=== PATIENT | male | born 1955 | race Caucasian/White ===

== ENCOUNTER 2020-08-23 10:36 | Outpatient (REF) | payer OTHER, SELFPAY ==
[2020-08-23 14:36] LABS: Prostate Specific Antigen 1.21 ng/mL (<0.05-4.0)
== END 2020-08-23 10:37 | disposition home or self-care (01) ==
LOC: HO.10HDL 10:36
PROVIDERS: Visit Provider Urology
DX: Z12.5 Encounter for screening for malignant neoplasm of prostate (principal); N40.1 Benign prostatic hyperplasia with lower urinary tract symptoms; N13.8 Other obstructive and reflux uropathy
CPT/HCPCS: 36415; 84153

== ENCOUNTER → 2020-09-02 09:33 | Outpatient (BNVA) | payer OTHER, SELFPAY | PROVIDERS: PCP Physician Assistant Medical; Visit Provider Urology | DX: N32.0 Bladder-neck obstruction (principal); Z80.42 Family history of malignant neoplasm of prostate | CPT/HCPCS: 99212 ==

== ENCOUNTER 2021-07-19 09:47 | Outpatient (REF) | payer OTHER, SELFPAY ==
[2021-07-19 11:15] LABS: Prostate Specific Antigen 1.19 ng/mL (<0.05-4.0)
== END 2021-07-19 09:48 | disposition home or self-care (01) ==
LOC: HO.10HDL 09:47
PROVIDERS: PCP Physician Assistant Medical; Visit Provider Urology
DX: Z12.5 Encounter for screening for malignant neoplasm of prostate (principal); N40.1 Benign prostatic hyperplasia with lower urinary tract symptoms; N32.0 Bladder-neck obstruction; N13.8 Other obstructive and reflux uropathy
CPT/HCPCS: 36415; 84153

== ENCOUNTER → 2021-08-24 09:53 | Outpatient (BNVA) | payer OTHER, SELFPAY | PROVIDERS: PCP Physician Assistant Medical; Visit Provider Urology | DX: Z13.89 Encounter for screening for other disorder (principal) | CPT/HCPCS: Q3014 ==

== ENCOUNTER 2022-08-13 10:53 | Outpatient (REF) | payer OTHER, SELFPAY ==
[2022-08-13 14:23] LABS: Prostate Specific Antigen 1.58 ng/mL (<0.05-4.0)
== END 2022-08-13 10:54 | disposition home or self-care (01) ==
LOC: HO.10HDL 10:53
PROVIDERS: Visit Provider Urology
DX: Z12.5 Encounter for screening for malignant neoplasm of prostate (principal); N13.8 Other obstructive and reflux uropathy; N32.0 Bladder-neck obstruction; N40.1 Benign prostatic hyperplasia with lower urinary tract symptoms
CPT/HCPCS: 36415; 84153

== ENCOUNTER → 2022-08-21 13:20 | Outpatient (BNVA) | payer OTHER, SELFPAY | PROVIDERS: PCP Physician Assistant Medical; Visit Provider Urology | DX: N32.0 Bladder-neck obstruction (principal); N40.1 Benign prostatic hyperplasia with lower urinary tract symptoms; N13.8 Other obstructive and reflux uropathy | CPT/HCPCS: 99212 ==

== ENCOUNTER 2023-08-01 10:12 | Outpatient (REF) | payer OTHER, SELFPAY ==
[2023-08-01 11:41] LABS: Prostate Specific Antigen 1.11 ng/mL (<0.05-4.0)
== END 2023-08-01 10:13 | disposition home or self-care (01) ==
LOC: HO.10HDL 10:12
PROVIDERS: Visit Provider Urology
DX: N32.0 Bladder-neck obstruction (principal); Z12.5 Encounter for screening for malignant neoplasm of prostate
CPT/HCPCS: 36415; 84153

== ENCOUNTER 2023-08-22 08:59 | Outpatient (AMB) | payer OTHER, SELFPAY ==
--- NOTE | 2023-08-22 09:04 | MHC.OFFVIS ---
Intake Intake Visit Reasons: 1Y PSA(set) Intake Note: Patient is Present for Follow Up Urology Medication: None Antibiotic Allergies:None Blood Thinners: None Allergies No Known Allergies Allergy (Verified 08/22/23 09:05) Medication List - Last Reconciled 08/22/23 by Danial Wiley MD albuterol sulfate 90 mcg/actuation 2 puffs inhalation Q4H PRN amlodipine 10 mg PO DAILY atorvastatin 40 mg PO BEDTIME cetirizine 10 mg PO BEDTIME diclofenac sodium 1% grams topical BID fluoxetine 20 mg PO DAILY fluticasone propion-salmeterol 500-50 mcg/dose 1 ea PO BID metformin 500 mg PO QAM montelukast 10 mg PO BEDTIME naproxen 500 mg PO BID tamsulosin 0.4 mg PO BEDTIME 30 days zolpidem 10 mg PO BEDTIME HPI HPI Comments History of Present Illness Details Nathaniel is a pleasant male. He is a patient of Dr Waggoner. He seen for the following urologic conditions - family history prostate cancer - lower urinary tract symptoms Slow age-related PSA climb States nocturia now 3-4 times per night and bothering him Discussed trial tamsulosin Prescription provided Two month follow-up tele Family history of prostate cancer Has been followed due to prostate cancer in his brother and father Also with some degree of bladder outlet obstruction in weak stream Background diabetes on single agent therapy PSA 08/23 0.83, 08/24 1.2, 07/25 1.2, 08/26 1.6, 07/27 1.1 Normal prostate Review in 12 months FORMERLY [facility], [facility]–1983 Medical History Asthma Hyperlipidemia HTN (hypertension) Family hx of prostate cancer Surgical History H/O umbilical hernia repair Family History Father Prostate cancer Mother Breast cancer Review of Systems Const Denies chills and Denies fever(s) Card Reports no additional complaints and Denies syncope Resp Denies cough GI Denies abdominal pain and Denies heartburn Reports as per HPI and Denies change in libido Neuro Denies syncope Psych Denies change in libido Endo Denies change in libido Physical Exam Const General: cooperative, healthy appearing, comfortable and no acute distress Orientation/consciousness: patient oriented x3 HEENT Face and sinus: Yes normal facial exam Mouth: moist mucous membranes Neck Neck: Yes normal visual inspection, Yes full ROM and Yes trachea midline Chest Chest palpation & inspection: normal inspection of the chest Resp Effort & Inspection: normal respiratory effort, able to speak in complete sentences and no respiratory distress GI Inspection: Yes normal to inspection Back/Spine/Pelvis Cervical Spine: normal cervical lordosis Thoracic/Lumbar Spine: thoracic and lumbar spine normal to inspection Skin General skin exam: no rashes or lesions noted Neuro General: patient oriented x3, gait normal, tone normal and moves all extremities Extrem General: Yes normal to inspection and Yes capillary refill normal Assessment & Plan Assessment & Plan (1) Family hx of prostate cancer: Code(s): Z80.42 - Family history of malignant neoplasm of prostate (2) Bladder outlet obstruction: Code(s): N32.0 - Bladder-neck obstruction Plan Trial tamsulosin Two month follow-up tele Medications: New tamsulosin 0.4 mg PO BEDTIME 30 days 30 caps 1RF N32.0 - Bladder-neck obstruction, N40.1 - Benign prostatic hyperplasia with lower urinary tract symptoms, R35.1 - Nocturia Patient Instructions: Imaging studies, laboratory and physical exam results were discussed and reviewed in detail. No major barriers to patient understanding were identified. An opportunity to ask questions regarding the treatment plan was provided. All questions were answered. The patient expressed understanding and agreement with the above treatment plan. The patient is aware they should contact our office by phone for worsening of their current condition or the appearance of new urologic symptoms. Compliance is encouraged with any medications and followup testing that is ordered. It is a privilege to participate in the urologic care of your patient. If you have any questions or concerns regarding treatment for the above conditions, or other urologic issues, please do not hesitate to contact me. The office telephone contact is [phone]. This note is constructed using voice recognition software. While every effort has been made to ensure accuracy air traffic control specialist center errors may have been included. Yours sincerely, Dr Danial Wiley MD, C[facility]ANDR[facility] - Urology Providers of Expert, Compassionate Care for the Genitourinary System Coding Level of Care Code Est Pt Level 4 (97508) Diagnoses Family hx of prostate cancer Z80.42 Bladder outlet obstruction N32.0
== END 2023-08-22 09:13 | disposition home or self-care (01) ==
PROVIDERS: PCP Physician Assistant Medical; Visit Provider Urology
DX: N32.0 Bladder-neck obstruction (principal); R35.1 Nocturia; Z80.42 Family history of malignant neoplasm of prostate
CPT/HCPCS: 99214

== ENCOUNTER → 2023-08-22 08:59 | Outpatient (BNVA) | payer OTHER, SELFPAY | PROVIDERS: Visit Provider Urology | DX: N40.1 Benign prostatic hyperplasia with lower urinary tract symptoms (principal); N13.8 Other obstructive and reflux uropathy; N32.0 Bladder-neck obstruction; R35.1 Nocturia; Z80.42 Family history of malignant neoplasm of prostate | CPT/HCPCS: 99212 ==

== ENCOUNTER 2023-10-22 09:13 | Outpatient (AMB) | payer OTHER, SELFPAY ==
--- NOTE | 2023-10-22 09:15 | A.OFFVIS_ITS ---
Intake Visit Reasons: 2M Med Review(Tamsulosin) Intake Note: Patient is Present for Telephone Follow Up For Med Review Urology Med: Tamsulosin Antibiotic Allergy:None Blood Thinner: None Infrastructure Software Engineer Required: Yes Infrastructure Software Engineer Language: Faroese Allergies No Known Allergies Allergy (Verified 10/22/23 09:15) Medication List - Last Reconciled 10/22/23 by Danial Wiley MD albuterol sulfate 90 mcg/actuation 2 puffs inhalation Q4H PRN amlodipine 10 mg PO DAILY atorvastatin 40 mg PO BEDTIME cetirizine 10 mg PO BEDTIME diclofenac sodium 1% grams topical BID fluoxetine 20 mg PO DAILY fluticasone propion-salmeterol 500-50 mcg/dose 1 ea PO BID metformin 500 mg PO QAM montelukast 10 mg PO BEDTIME tamsulosin 0.4 mg PO BEDTIME 90 days zolpidem 10 mg PO BEDTIME HPI Comments Details: Nathaniel is a pleasant male. He is a patient of Dr Waggoner. He seen for the following urologic conditions - family history prostate cancer - lower urinary tract symptoms Telemedicine Evaluation 15 min Consultation [place] Video attempted Faroese translation provided in office by qualified emergency medical service manager Follow-up for trial of tamsulosin Nocturia prior 3-4 times per night with bother Good response Would like to remain on medications Six-month follow-up with bladder ultrasound Family history of prostate cancer Has been followed due to prostate cancer in his brother and father Also with some degree of bladder outlet obstruction in weak stream Background diabetes on single agent therapy PSA 08/23 0.83, 08/24 1.2, 07/25 1.2, 08/26 1.6, 07/27 1.1 Normal prostate PFSH Medical History Asthma Hyperlipidemia HTN (hypertension) Family hx of prostate cancer Surgical History H/O umbilical hernia repair Family History Father Prostate cancer Mother Breast cancer Review of Systems Const All systems reviewed & are unremarkable except as noted in HPI and below Reports no additional complaints Resp Reports no additional complaints GI Reports no additional complaints Reports as per HPI Musc Reports no additional complaints Physical Exam Telemedicine evaluation Appropriate responses Regular breathing rate and rhythm HEENT Head: Yes normal to inspection Ears: hearing grossly normal bilaterally Eyes General: appearance normal, both eyes and all related structures Neck Neck: Yes normal visual inspection Chest Chest palpation & inspection: normal inspection of the chest Resp Effort & Inspection: normal respiratory effort and able to speak in complete sentences Telehealth Telehealth Telehealth Platform: Telephone Location of provider rendering services: practice address Location of patient: address on file Patient Identification confirmed using: Name, : Yes Telehealth method: voice only Patient verbally consented to treatment: Yes Patient verbally consented to billing insurance company: Yes Patient informed of any privacy concerns related to visit: Yes Minutes spent on Phone/Video with Pt.: 15 Assessment & Plan Assessment & Plan (1) Bladder outlet obstruction: Code(s): N32.0 - Bladder-neck obstruction Category: Medical Plan Six-month follow-up bladder ultrasound Continue tamsulosin Orders: Orders US bladder 6 Months N32.0 - Bladder-neck obstruction, R39.12 - Poor urinary stream Medications: Changed From tamsulosin 0.4 mg PO BEDTIME 30 days 30 caps 1RF N32.0 - Bladder-neck obstruction, N40.1 - Benign prostatic hyperplasia with lower urinary tract symptoms, R35.1 - Nocturia To tamsulosin 0.4 mg PO BEDTIME 90 days 90 caps 1RF N32.0 - Bladder-neck obstruction, N40.1 - Benign prostatic hyperplasia with lower urinary tract symptoms, R35.1 - Nocturia Patient Instructions: Imaging studies, laboratory and physical exam results were discussed and reviewed in detail. No major barriers to patient understanding were identified. An opportunity to ask questions regarding the treatment plan was provided. All questions were answered. The patient expressed understanding and agreement with the above treatment plan. The patient is aware they should contact our office by phone for worsening of their current condition or the appearance of new urologic symptoms. Compliance is encouraged with any medications and followup testing that is ordered. It is a privilege to participate in the urologic care of your patient. If you have any questions or concerns regarding treatment for the above conditions, or other urologic issues, please do not hesitate to contact me. The office telephone contact is [phone]. This note is constructed using voice recognition software. While every effort has been made to ensure accuracy batter mixer errors may have been included. Yours sincerely, Dr Danial Wiley MD, [facility] - Urology Providers of Expert, Compassionate Care for the Genitourinary System Coding Level of Care Code Tele Est Pt Level 3 (21432) Diagnoses Bladder outlet obstruction N32.0
== END 2023-10-22 09:50 | disposition home or self-care (01) ==
LOC: HO.HUSH 09:13
PROVIDERS: PCP Physician Assistant Medical; Visit Provider Urology
DX: N32.0 Bladder-neck obstruction (principal)
CPT/HCPCS: 99442

== ENCOUNTER → 2023-10-22 09:13 | Outpatient (BNVA) | payer OTHER, SELFPAY | PROVIDERS: PCP Physician Assistant Medical; Visit Provider Urology ==

== ENCOUNTER 2024-04-08 10:29 | Outpatient (REF) | payer OTHER, SELFPAY | END 2024-04-08 10:30 | disposition home or self-care (01) | LOC: HO.US 10:29 | PROVIDERS: PCP Physician Assistant Medical; Visit Provider Urology | DX: Z13.89 Encounter for screening for other disorder (principal) ==

== ENCOUNTER 2024-04-20 08:48 | Outpatient (REF) | payer OTHER, SELFPAY | END 2024-04-20 08:49 | disposition home or self-care (01) | LOC: HO.US 08:48 | PROVIDERS: PCP Physician Assistant Medical; Visit Provider Urology | DX: R39.12 Poor urinary stream (principal); N32.0 Bladder-neck obstruction | CPT/HCPCS: 76857 ==

== ENCOUNTER 2024-06-05 10:21 | Outpatient (AMB) | payer OTHER, SELFPAY ==
--- NOTE | 2024-06-05 10:28 | A.OFFVIS_ITS ---
Intake Visit Reasons: 6m/US(set) Intake Note: Patient is present for 6M /US Urology Medication:TAMSULOSIN Antibiotic Allergy:NONE Blood Thinner:NONE Vp Emerging Media Required: No Allergies No Known Allergies Allergy (Verified 06/05/24 10:29) HPI Comments Details: Nathaniel is a pleasant male. He is a patient of Dr Waggoner. He seen for the following urologic conditions - family history prostate cancer - lower urinary tract symptoms Vietnamese translation provided in office by qualified lead medical technologist Follow-up for trial of tamsulosin Nocturia prior 3-4 times per night with bother Bladder ultrasound Large prostate 100 cc Mild diffuse irregularity and trabeculation of the bladder wall. Incomplete bladder emptying Start finasteride Plan follow-up prostate procedure Family history of prostate cancer Has been followed due to prostate cancer in his brother and father Also with some degree of bladder outlet obstruction in weak stream Background diabetes on single agent therapy PSA 08/23 0.83, 08/24 1.2, 07/25 1.2, 08/26 1.6, 07/27 1.1 Normal prostate PFSH Medical History Asthma Hyperlipidemia HTN (hypertension) Family hx of prostate cancer Surgical History H/O umbilical hernia repair Family History Father Prostate cancer Mother Breast cancer Review of Systems Const Denies chills and Denies fever(s) Card Reports no additional complaints and Denies syncope Resp Denies cough GI Denies abdominal pain and Denies heartburn Reports as per HPI and Denies change in libido Neuro Denies syncope Psych Denies change in libido Endo Denies change in libido Physical Exam Const General: cooperative, healthy appearing, comfortable and no acute distress Orientation/consciousness: patient oriented x3 HEENT Face and sinus: Yes normal facial exam Mouth: moist mucous membranes Neck Neck: Yes normal visual inspection, Yes full ROM and Yes trachea midline Chest Chest palpation & inspection: normal inspection of the chest Resp Effort & Inspection: normal respiratory effort, able to speak in complete sentences and no respiratory distress GI Inspection: Yes normal to inspection Back/Spine/Pelvis Cervical Spine: normal cervical lordosis Thoracic/Lumbar Spine: thoracic and lumbar spine normal to inspection Skin General skin exam: no rashes or lesions noted Neuro General: patient oriented x3, gait normal, tone normal and moves all extremities Extrem General: Yes normal to inspection and Yes capillary refill normal Results AMB Urinalysis, Automated UA Leukoctes 0 Kathy/uL Last Edit by TAMIA Arias on 06/05/24 10:38 UA Nitrite Negative Last Edit by Donovan May [facility] on 06/05/24 10:38 UA Urobilinogen 0.2 mg/dL Last Edit by Donovan May [facility] on 06/05/24 10:3 8 UA Protein 15 mg/dL Last Edit by Donovan May [facility] on 06/05/24 10:38 UA pH 6.0 Last Edit by Donovan May [facility] on 06/05/24 10:38 UA Blood 10 Silvio/uL Last Edit by Donovan May [facility] on 06/05/24 10:38 UA Specific [place] 1.025 Last Edit by Donovan May [facility] on 06/05/24 10: 38 UA Ketone Negative Last Edit by Donovan May [facility] on 06/05/24 10:38 UA Bilirubin 0 mg/dL Last Edit by Donovan May [facility] on 06/05/24 10:38 UA Glucose 0 mg/dL Last Edit by Donovan May [facility] on 06/05/24 10:38 Results Reviewed Results Reviewed: Laboratory Last Values Urine pH (Auto) 6.0 06/05/24 10:37 Specific [place] (Auto) 1.025 06/05/24 10:37 Urine Protein (Auto) 15 mg/dL 06/05/24 10:37 Glucose (UA)(Auto) 0 mg/dL 06/05/24 10:37 Urine Ketones (Auto) Negative 06/05/24 10:37 Urine Blood (Auto) 10 Silvio/uL 06/05/24 10:37 Urine Nitrite (Auto) Negative 06/05/24 10:37 Urine Bilirubin (Auto) 0 mg/dL 06/05/24 10:37 Urine Urobilinogen (Auto) 0.2 mg/dL 06/05/24 10:37 Leukocyte Esterase (Auto) 0 Kathy/uL 06/05/24 10:37 Assessment & Plan Assessment & Plan (1) Bladder outlet obstruction: Code(s): N32.0 - Bladder-neck obstruction Category: Medical Plan Plan office cystoscopy Stop finasteride Orders: Orders AMB Urinalysis Automated Today Z13.9 - Encounter for screening, unspecified Medications: New finasteride 5 mg PO DAILY 90 tabs 1RF 90 days N13.8 - Other obstructive and reflux uropathy, N32.0 - Bladder-neck obstruction, N40.1 - Benign prostatic hyperplasia with lower urinary tract symptoms, R33.9 - Retention of urine, unspecified Patient Instructions: Imaging studies, laboratory and physical exam results were discussed and reviewed in detail. No major barriers to patient understanding were identified. An opportunity to ask questions regarding the treatment plan was provided. All questions were answered. The patient expressed understanding and agreement with the above treatment plan. The patient is aware they should contact our office by phone for worsening of their current condition or the appearance of new urologic symptoms. Compliance is encouraged with any medications and followup testing that is ordered. It is a privilege to participate in the urologic care of your patient. If you have any questions or concerns regarding treatment for the above conditions, or other urologic issues, please do not hesitate to contact me. The office telephone contact is [phone]. This note is constructed using voice recognition software. While every effort has been made to ensure accuracy cyber security instructor errors may have been included. Yours sincerely, Dr Danial Wiley MD, C[facility] - Urology Providers of Expert, Compassionate Care for the Genitourinary System Coding Level of Care Code Est Pt Level 4 (31243) Complex EM visit Add On G2211 Diagnoses Bladder outlet obstruction N32.0
--- OUTSIDE RECORDS SUMMARY | 2024-06-05 11:01 | XMS_ITS | Encounter Summary ---
Author Organization [facility] Address [address] [place] [address] Care Team Providers Care Servomechanism Assembler Name Role Phone Leonel Waggoner PA-C Primary Care Provider Encounter Details Date Type Department Care Team ([facility] st Contact Info) Description 05/29/2023 Interim Notes [facility]ly [facility], [facility] [place] [address] Meagan Woodard DC [address] [place] [address] Social History Tobacco Use Types Packs/Day Years Used Date Smoking Tobacco: Former Cigarettes 1 40 0 12/19/1971 - 12/19/2011 Smokeless Tobacco: Former Alcohol Use Standard Drinks/Week Comments Not Currently 1 (1 standard drink = 0.6 oz pur e alcohol) Social Connections Answer Date Recorded Social Connections and Isolation 1 04/11/2022 Financial Resource Strain Answer Date R ecorded Financial Resource Strain 1 2021 Stress Answer Date Recorded Stress 1 04/11/2022 Physical Activity Answer Date Recorded Physical Activity 0 09/01/2020 Food Insecurity Answer Date Recorded Food 1 04/11/2022 Transportation Needs Answer Date Record ed Transportation 1 04/11/2022 Housing Stability Answer Date Recorded Housing 1 04/11/2022 Safety and Environment Answer Date Anjum rded Safety 1 04/11/2022 Utilities Answer Date Recorded Utilities 1 04/11/2022 Employment Answer Date Recorded Stress 0 09/01/2020 Sex and Gender Information Value Date Recorded Sex Assigned at Male 02/14/2017 6:15 AM PDT Legal Sex Male 6:03 AM PDT Gender Identity Male 02/14/2017 6:15 AM PDT Sexual Orientation Straight 02/14/2017 6: 15 AM PDT COVID-19 Exposure Response Date Recorded In the last 10 days, have zain u been in contact with someone who was confirmed or suspected to have Coronavirus/COVID-19? No / Unsure 05/28/2023 3:23 PM EST documented as of this encounter Plan of Treatment Upcoming Encounters Date Type Department Care Team (Late st Contact Info) Description 07/01/2024 9:20 AM EST Office Visit [facility] [address] [place] [address] Leonel Waggoner PA-C [address] [place] [address] documented as of this encounter Goals Goal Patient Goal Type Associated Problems Recent Progress Patient-Stated? Author Blood Pressure < 130/80 Blood Pressure Essential hypertension 122/72(2023 8:41 AM EDT) No Stephanie Haddad, PharmD documented as of this encounter Visit Diagnoses Not on filedocumented in this encounter Additional Health Concerns Assessment Noted Time PHQ-9 Depression Total Score: 0 05/28/19 24 3:39 PM PST documented as of this encounter Care Teams Servomechanism Assembler Relationship Specialty Start Date End Date Leonel Waggoner PA-C [address] [place] [address] PCP - General [facility]INE[facility] 12/07/19 documented as of this encounter
--- OUTSIDE RECORDS SUMMARY | 2024-06-05 11:01 | XMS_ITS | Clinical Summary ---
Author Organization [facility] it Address [address] [place] [address] Care Team Providers Care Vp Analysis Name Role Phone Ana Kennedy NP Primary Care Provider [phone] Social History Tobacco Use Types Packs/Day Years Used Date Smoking Tobacco: Never Assessed Sex and Gender Information Value Date Recorded Sex Assigned at Not on file Gender Identity Not on file Sexual Orientation Not on file Plan of Treatment Health Maintenance Due Date Last Done Comments Pneumococcal Vaccine: 65+ Ye ars (1 of 2 - PCV) 1962 DTaP,Tdap,and Td Vaccines (1 - Tdap) 10/03/1975 Zoster Vaccines (1 of 2) 2006 RSV Immunization Patients 60 + Years Old (1 - Risk 60-74 years 1-dose series) 2016 Cholesterol Screening (Lipid Panel) 04/04/2022 Colorectal Cancer Screening: Colonoscopy 04/04/2022 Falls Risk Assessment 04/04/2022 Hepatitis C Screening 04/04/2022 Lung Cancer Screening (Low D ose CT) 04/04/2022 Social Influencers of Health Screening 04/04/2022 Hypertension/CHF/CAD Annual BMP Blood Test 05/28/2023 COVID-19 Vaccine ( - 2023-2 5 season) 2024 Influenza Vaccine (#1) 2024 Depression Screening 02/10/2025 02/11/2024 Abdominal Aortic Aneurysm (A AA) Screen Completed 04/11/2023 HIB Vaccines Aged Out No longer eligi ble based on patient's age to complete this topic HPV Vaccines Aged Out No longer eligi ble based on patient's age to complete this topic Hepatitis A Vaccines Aged Out No long er eligible based on patient's age to complete this topic Hepatitis B Vaccines Aged Out No long er eligible based on patient's age to complete this topic IPV Vaccines Aged Out No longer eligi ble based on patient's age to complete this topic MMR Vaccines Aged Out No longer eligi ble based on patient's age to complete this topic Meningococcal ACWY Vaccine Aged Out N o longer eligible based on patient's age to complete this topic RSV Immunization Patients Un dandre 20 months Aged Out No longer eligible b ased on patient's age to complete this topic Varicella Vaccines Aged Out No longer eligible based on patient's age to complete this topic Procedures Procedure Name Priority Date/Time Associated Diagnosis Comments US ABDOMEN AORTA SCR STUDY AAA Routine 04/11/2023 4:33 PM EST Encounter for screening for cardiovascular disorders from Last 3 Months or Most Recently Relevant to Health Maintenance Results * US ABDOMEN AORTA SCR STUDY AAA (04/11/2023 4:33 PM EST) Anatomical Region Laterality Modality Ultrasound 04/08/2023 8:50 AM EST Narrative 04/11/2023 4:33 PM EST [facility] Diagnostic Imaging Department [address] [place] [address] Patient: ??NATHANIEL DEE ?/Age/Sex: 1955 - 67 - M Unit#: ??[id number] ? Location/Status: ??SPDIUS/REG CLI ? Mnemonic/Ordering Site: ??AAASCRSTUD/SPUS Ordering Physician: ??YOLANDA BOUCHER MD US Abdomen Aorta Scr Study AAA - 04/08/23920 Report Status:Signed INDICATION: Screening for abdominal aortic aneurysm FINDINGS: Screening study ultrasound of the aorta performed. Aortic measurements: Proximal: 3.4 cm Mid: 3.0 cm Distal: 2.4 cm Patent iliac vessels. IMPRESSION: No abdominal aortic aneurysm. Dictating Physician: ??FRANDY CARROLL MD Electronically Signed by: ??FRANDY CARROLL MD Dic Date/Time: ??04/11/23 162 Sign date/Time: ??04/11/23 1633 Procedure Note Frandy Carroll MD - 06/11/2023 [facility] Diagnostic Imaging Department [address] [place], [place] [id number] Patient: NATHANIEL DEE./Age/Sex: 1955 - 67 - M Unit#: [id number] Location/Status: [facility] Mnemonic/Ordering Site: AAASCRST/US Ordering Physician: YOLANDA BOUCHER MD US Abdomen Aorta Scr Study AAA - 04/08/23 - 0921 Report Status:Signed INDICATION: Screening for abdominal aortic aneurysm FINDINGS: Screening study ultrasound of the aorta performed. Aortic measurements: Proximal: 3.4 cm Mid: 3.0 cm Distal: 2.4 cm Patent iliac vessels. IMPRESSION: No abdominal aortic aneurysm. Dictating Physician: FRANDY CARROLL MD Electronically Signed by: FRANDY CARROLL MD Dic Date/Time: 04/11/231624 Sign date/Time: 04/11/23 1633 Yolanda Boucher MD IMG US PROCEDURES from Last 3 Months or Most Recently Relevant to Health Maintenance Care Teams Vp Analysis Relationship Specialty Start Date End Date Ana Kennedy NP PCP - General Family Medicine 07/15/17
--- OUTSIDE RECORDS SUMMARY | 2024-06-05 11:02 | XMS_ITS | Clinical Summary ---
Author Organization [facility] Address [address] [place] [address] Care Team Providers Care Bunker Worker Name Role Phone Ana Kennedy Primary Care Provider [phone] Allergies Active Allergy Reactions Criticality Noted Date Comments Lisinopril 07/26/2017 Medications Medication Sig Dispensed Refills Start Date End Date Status fluticasone-salmeter ol (ADVAIR DISKUS) 500-50 MCG/DOSE DISKUS Per Pulmo. 0 05/24/2016 Active albuterol (PROVENTIL HFA;VENTOLIN HFA) 108 (90 Base) MCG/ACT inhaler Inhale 2 puffs into the lungs. 0 05/14/2017 Active amLODIPine (NORVASC) tablet 10 mg Take 10 mg by mouth. 0 05/14/2017 Ac tive aspirin EC 81 MG tablet Take 81 mg by mouth. 0 05/14/2017 Acti ve atorvastatin (LIPITOR) tablet 40 mg Take 40 mg by mouth. 0 05/14/2017 Acti ve lidocaine (XYLOCAINE) 5 % ointment Apply 1 applicator topically. 0 05/14/2017 Active mirtazapine (REMERON) 15 MG tablet Per Psych- Rodrigo 0 06/08/2015 Active montelukast (SINGULAIR) 10 MG tablet Per Pulmo 0 01/02/2016 Active naproxen (NAPROSYN) 500 MG tablet Take 500 mg by mouth. 0 05/14/2017 Active budesonide (PULMICORT FLEXHALER) 90 MCG/ACT inhaler Per Pulmo 0 03/12/2016 Active tiotropium (SPIRIVA) [address] 18 mcg into inhaler and inhale. 0 05/14/2017 Active Family History Medical History Relation Name Comments Cancer Brother Cancer Father Cancer Sister Relation Name Status Comments Brother Father Sister Social History Tobacco Use Types Packs/Day Years Used Date Smoking Tobacco: Never Assessed Sex and Gender Information Value Date Recorded Sex Assigned at Not on file Gender Identity Not on file Sexual Orientation Not on file Last Filed Vital Signs Vital Sign Reading Time Taken Comments Blood Pressure - - Pulse - - Temperature - - Respiratory Rate - - Oxygen Saturation - - Inhaled Oxygen Concentration - - Weight 104.3 kg (230 lb) 07/26/2017 11:06 AM EDT Height 188 cm (6' 2 ) 07/26/2017 11:06 AM EDT Body Mass Index 29.53 07/26/2017 11:06 AM EDT Plan of Treatment Health Maintenance Due Date Last Done Comments Hepatitis C Screening 1955 COVID-19 Vaccine (#1) 04[birth year]04/1957 Depression Screening 1968 Preventative Health Evaluation 1974 Shingrix-Zoster Vaccine (1 of 2) 2006 Fall Risk Assessment 2021 Pneumococcal Vaccine (2 of 2 - PCV) 2021 05/05/2015 Colon Cancer Screening (Colonoscopy) 11/14/2022 11/14/2012 Influenza Vaccine (#1) 2024 12/19/2016 DTap / Tdap / Td (2 - Td or Tdap) 11/15/2026 017 RSV Adult > 60+ Yrs or Pregn ant (1 - 1-dose 75+ series) 10/03/2031 Hepatitis B Vaccines Aged Out No long er eligible based on patient's age to complete this topic RSV Ped < 20 months Aged Out No longe r eligible based on patient's age to complete this topic Care Teams Bunker Worker Relationship Specialty Start Date End Date Ana Kennedy [address] [place] [id number] PCP - General Family Medicine 07/15/17
--- OUTSIDE RECORDS SUMMARY | 2024-06-05 11:02 | XMS_ITS | Clinical Summary ---
Author Organization [facility] Address [address] [place] [address] Care Team Providers Care Duplicating Machine Servicer Name Role Phone Leonel Waggoner PA-C Primary Care Provider [phone] Source Comments PLEASE NOTE, if this patient is a minor, it may be UNLAWFUL to discuss sensitive information that is contained in these records (such as FAMILY PLANNING, MENTAL HEALTH or SUBSTANCE ABUSE) with the minor patient's parent or other person without the patient's specific authorization.[facility] Allergies Active Allergy Reactions Criticality Noted Date Comments Lisinopril 12/23/2014 Dry cough Pollen 11/30/2020 Other Reaction(s): Unknown Pollen Extracts High 12/01/2020 Medications compr.madi beauchamp,earlene,hildaIndica tions:Bilateral lower extremity edema 3 PAIRS COMPRESSION STOCKINGS. Dx: R60.0. 20-30 mmHg. 3 Each 08/23/19 19 Active zolpidem (AMBIEN) 10 mg tabletIndications: Anxiety and depression Take 1 Tab by mouth nightly at bedtime 30 Tab 03/02/20 19 Active FLUoxetine (PROZAC) 20 mg capsuleIndications :Anxiety and depression Take 1 Cap by mouth once daily 30 Cap 09/01/19 20 Active albuterol sulfate (PROVENTIL) 2.5 mg /3 mL (0.083 %) nebulizer solutionIndication s:Pulmonary emphysema, unspecified emphysema type (HCC-CMS) Take 3 mL by nebulization every 6 (six) hours as needed for wheezing 120 Vial 2 05/20/19 21 Active miscellaneous medical supply miscIndications:Es sential hypertension by miscellaneous route 2 (two) times daily Dx: HTN. Portable digital blood pressure machine, disp#1, no refill. 1 Each 03/28/20 21 Active NUCALA 100 mg/mL atIn 01/02/20 22 Active marianela.stocking,t high,reg,med See Instructions, # 2 each, Refills 2, Tot. Refills 2, Maintenance, surgical, knee length 20-30 mm Hg Dx: Juli Insuff. bilateral legs, 07/07/21 8:20:00 EST, Supply 03/01/20 21 Active MISCELLANEOUS MEDICAL SUPPLY MISCIndications:Ch ronic right-sided thoracic back pain by miscellaneous route once daily Dx: chronic right sided thoracic pain ALIA: 99 Supply: Removable shower head with handle. 1 Each 06/25/19 24 Active MISCELLANEOUS MEDICAL SUPPLY MISCIndications:Ch ronic right-sided thoracic back pain by miscellaneous route once daily DX: chronic right sided thoracic pain ALIA: 99 Supply: leg pillow 1 Each 06/25/19 24 Active tamsulosin (FLOMAX) 0.4 mg 24 hr capsule Take 0.4 mg by mouth nightly at bedtime 09/18/19 24 Active hydrOXYzine HCL (ATARAX) 25 mg tablet 09/14/19 24 Active clobetasoL (TEMOVATE) 0.05 % ointment APPLY TO BACK, ARMS TWICE A DAY NEEDED FLARES, DECREASE USE SYMPTOMS IMPROVE 09/10/19 24 Active triamcinolone (KENALOG) 0.1 % ointment APPLY TO TRUNK, ARMS, LEGS 2 TIMES DAILY NEEDED FOR FLARES 08/19/19 24 Active tadalafiL (CIALIS) 10 mg tabletIndications: Other male erectile dysfunction Take 10 mg as a single dose =30 minutes prior to anticipated sexual activity; do not take more than once daily. Erectile function may be improved for up to 36 hours following a single dose. Adjust dose based on effectiveness and tolerability; may decrease to 5 mg 10 Tablet 2 10/10/19 24 Active albuterol HFA (VENTOLIN HFA) 90 mcg/actuation inhalerIndications :Pulmonary emphysema, unspecified emphysema type (HCC-CMS) Inhale 2 Puffs into the lungs every 4 (four) hours as needed for shortness of breath or wheezing 18 Each 2 10/10/19 24 Active atorvastatin (LIPITOR) 40 mg tabletIndications: Mixed hyperlipidemia TAKE 1 TABLET BY MOUTH EVERY DAY 90 Tablet 1 01/07/20 24 Active amLODIPine (NORVASC) 10 mg tabletIndications: Essential hypertension TAKE 1 TABLET BY MOUTH EVERY DAY 90 Tablet 1 02/02/20 24 Active fluticasone-umecli dinum-vilanterol (TRELEGY ELLIPTA) 100-62.5-25 mcg inhalerIndications :Pulmonary emphysema, unspecified emphysema type (HCC-CMS) Inhale 1 Puff into the lungs once daily 60 Each 5 02/11/20 24 Active naproxen (NAPROSYN) 500 mg tabletIndications: Arthritis,Pain in both feet Take 1 Tablet by mouth 2 (two) times daily with a meal 60 Tablet 5 02/11/20 24 Active metFORMIN (GLUCOPHAGE) 500 mg tabletIndications: Prediabetes Take 1 Tablet by mouth once daily with breakfast 90 Tablet 1 02/26/20 24 Active diclofenac sodium (VOLTAREN) 1 % gelIndications:Rig ht elbow pain APPLY TOPICALLY 2 (TWO) TIMES DAILY TO AFFECTED AREA 100 g 2 03/30/20 24 Active Active Problems Problem Noted Date Diagnosed Date Venous hypertension of lower extremity 4 Varicose veins of left lower extremity with pain 01/20/2024 Chronic right-sided thoracic back pain 3 Allergic rhinitis 01/30/2022 Colonic polyp 01/30/2022 Right Hand Pain Xray 06/16/2020 Overview (06/16/2020): Xray Of Right Hand FINDINGS: No fractures or bone lesions 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 Normal soft tissues Impression: No fractures or dislocation. Moderate persistent asthma 05/25/2018 Overview (01/04/2019): 04/14/18 - [facility] PULM F/U Dr. Horton: Had frequent asthma exacerbation in september 2017. 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 Was started on Omalizumab 375 mg Q2wks, now For almost 1 year, with good response. He should remain on Omalizumab. 10/13/18 - Pulm F/U. Pt with better controlled asthma. Plan: restart Salmeterol/fluticasone 50/500 1 inhalation BID. Not using Singulair, will consider restarting in future. F/U 6 mos. Rectal bleed 05/09/2018 Overview (05/09/2018): 05/07/18 - Seen at [facility] ED c/o low back pain x 2 weeks with BRBPR x [address] Abdomen/Pelvis: NO evidence of acute intra-abdominal process. NO specific explanation for clinical symptomatology. Colonic diveticulosis w/o CT signs of acute diverticulitis. F/U PCP Recurrent major depressive d isorder, in partial remission ([facility]) 01/28/2018 Prediabetes 01/28/2018 Overview (01/28/2018): Lab Results Component Value Date HGBA1C 5.7 01/28/2018 HGBA1C 5.5 12/23/2014 Epigastric mass 08/26/2016 Overview (08/26/2016): [facility] in 2016 negative Recurrent epigastric hernia 07/20/2016 MAO on CPAP 09/18/2015 Overview (09/18/2015): [facility] Hyperlipidemia 12/23/2014 Essential hypertension 12/23/2014 COPD (chronic obstructive pulmonary disease) ([facility]) 12/23/2014 Overview (03/27/2016): [facility] 2014: Pulmonary hyperinflation in keeping with COPD Arthritis 12/23/2014 Overview (12/23/2014): Lower back Resolved Problems Problem Noted Date Diagnosed Date Resolved Date Hx of colonoscopy with polypectomy 09/26/2015 05/09/2018 Overview (09/26/2015): [facility] 2015, tubular adenoma, follow up in one year due to poor prep Immunizations Name Administration Dates Next Due Flu, High Dose, 65y+, Fluzon e High Dose 01/30/2022 Flu, Preservative Free 12/19/2019,2018,12/29/2018,01/17,01/17/2018,12/19/2016,12/19/2016 ,01/18/2016,01/18/2016 INFLUENZA, SEASONAL, INJECTABLE 12/19/2016 Influenza (FLUZONE), high-do se, trivalent, PF 02/11/2024 MODERNA COVID-19 VACCINE BIV ALENT, BLUE CAP, 6M+ 01/30/2022 Moderna COVID-19 Vaccine, re d cap blue label, 12+ Primary Series 03/20/2021,07/30/2020,07/02/2020 PNEUMOCOCCAL CONJUGATE PCV 2 0 (Prevnar) 09/27/2022 PNEUMOCOCCAL POLYSACCHARIDE PPV23 10/26/2021, TDAP 06/21/2017,11/15/2016 ZOSTER VACCINE, RECOMBINANT (SHINGRIX) 0,06/02/2019 Family History Medical History Relation Name Comments Diabetes Brother 1 Diabetes Brother 2 Diabetes Brother 3 Cancer Father prostate cancer Cancer Sister breast cancer Relation Name Status Comments Brother 1 Brother 2 Brother 3 Father Mother Sister Alive Social History Tobacco Use Types Packs/Day Years Used Date Smoking Tobacco: Former Cigarettes 1 40 0 12/19/1971 - 12/19/2011 Passive Smoke Exposure: Never Smokeless Tobacco: Former Tobacco Cessation:Counseling Given: Yes Alcohol Use Standard Drinks/Week Comments Not Currently 1 (1 standard drink = 0.6 oz pur e alcohol) Social Connections Answer Date Recorded Connectedness 1 12/30/2023 Financial Resource Strain Answer Date R ecorded Financial Resource Strain 2 2023 Stress Answer Date Recorded Stress 1 12/30/2023 Physical Activity Answer Date Recorded Physical Activity 0 09/01/2020 Food Insecurity Answer Date Recorded Food 1 12/30/2023 Transportation Needs Answer Date Record ed Transportation 1 12/30/2023 Housing Stability Answer Date Recorded Housing 1 12/30/2023 Safety and Environment Answer Date Anjum rded Safety 1 10/10/2023 Utilities Answer Date Recorded Utilities 1 12/30/2023 Employment Answer Date Recorded Stress 0 09/01/2020 Sex and Gender Information Value Date Recorded Sex Assigned at Male 02/14/2017 6:15 AM PDT Legal Sex Male 6:03 AM PDT Gender Identity Male 02/14/2017 6:15 AM PDT Sexual Orientation Straight 02/14/2017 6: 15 AM PDT Last Filed Vital Signs Vital Sign Reading Time Taken Comments Blood Pressure 122/72 02/11/2024 8:41 AM EDT Pulse 72 02/11/2024 8:41 AM EDT Temperature 36.4 ??C (97.5 ??F) 02/11/2024 8:41 AM ED T Respiratory Rate 16 02/11/2024 8:41 AM EDT Oxygen Saturation 96% 02/11/2024 8:41 AM EDT Inhaled Oxygen Concentration - - Weight 103.9 kg (229 lb) 02/11/2024 8:41 AM EDT Height 180.3 cm (5' 11 ) 02/11/2024 8:41 AM EDT Body Mass Index 31.94 02/11/2024 8:41 AM EDT Plan of Treatment Upcoming Encounters Date Type Department Care Team (Late st Contact Info) Description 07/01/2024 9:20 AM EST Office Visit [facility] [address] [place] [address] Leonel Waggoner PA-C [address] [place] [address] Health Maintenance Due Date Last Done Comments CT Colonography 2001 Fecal DNA 2001 Flexible Sigmoidoscopy 2001 FIT/gFOBT 04/02/2018 04/02/2017, 09/04 (Managed by Outside Provider) Falls Prevention 02/22/2024 02/21/2023, , 09/01/2020 Alcohol and Drug Screen 05/06/2024 02/11/20 24, 10/10/2023, 05/28/2023, Additional history exists Depression Monitoring 05/13/2024 02/11/2024 , 10/10/2023, 05/28/2023, Additional history exists Mag-AAMCL-01 ( season) 2024 01/30/2022, 03/20/2021, 07/30/2020, Additional history exists Postponed from 01/05/2024 (Patient postponement) Medicare Annual Wellness Visit 10/09/2024 10/10/2023, 09/27/2022, 03/13/2021, Additional history exists Tobacco Screening 02/10/2025 02/11/2024 Diabetes Screening 02/11/2025 02/12/2024, 1 , 10/11/2023, Additional history exists Lipid Screening 02/11/2025 02/12/2024, 06/0 11/2023, 06/01/2023, Additional history exists Lung Cancer Screening 03/04/2025 03/04/2024 Colonoscopy 04/02/2027 04/02/2017 Colorectal Cancer Screening 04/02/2027 Imm-DTaP/Tdap/Td (3 - Td or Tdap) 06/21/2027 06/21/2017, 11/15/2016 Hepatitis C Screening Completed 11/15/2016 Imm-Zoster, Recombinant Completed 11/28/2019, 06/02 Imm-Pneumococcal 65+ Completed 09/27/2022, 10/26/2021, 05/05/2015 Abdominal Aortic Aneurysm Screening Completed 04/08/2023 Imm-Influenza Completed 02/11/2024, 01/05, 12/19/2019, Additional history exists Goals Goal Patient Goal Type Associated Problems Recent Progress Patient-Stated? Author Blood Pressure < 130/80 Blood Pressure Essential hypertension 122/72(2023 8:41 AM EDT) No Stephanie Haddad, PharmD Procedures Procedure Name Priority Date/Time Associated Diagnosis Comments IMAGING SCANNED DOCUMENT 04/20/2024 3:00 AM EST LOW DOSE CT LUNG SCREENING Routine 03/04/2024 3:00 AM EDT Former smoker COMPREHENSIVE METABOLIC PANEL Routine 02/12/2024 8:40 AM EDT Essential hypertension Mixed hyperlipidemia Prediabetes LIPID PANEL Routine 02/12/2024 8:40 AM EDT Essential hypertension Mixed hyperlipidemia Prediabetes US ABDOMINAL AORTA REAL TIME SCREEN STUDY AAA Routine 04/08/2023 3:00 AM EST Health care maintenance COLONOSCOPY Routine 04/02/2017 10:26 AM EST HEPATITIS A,B,C PANEL Routine 11/15/2016 9:35 AM EDT Routine general medical examination at a health care facility from Last 3 Months or Most Recently Relevant to Health Maintenance Results * IMAGING SCANNED DOCUMENT (04/20/2024 3:00 AM EST) 04/20/2024 3:00 AM EST us Rosimar Waggoner PA-C SCAN IMAGING Final Result * LOW DOSE CT LUNG SCREENING (03/04/2024 3:00 AM EDT) 03/04/2024 3:00 AM EDT us Rosimar Waggoner PA-C IMG CT Final Result * LIPID PANEL (02/12/2024 8:40 AM EDT) CHOLESTEROL, TOTAL 118 <200 mg/dL [facility] HDL CHOLESTEROL 43 > OR = 40 mg/dL [facility] TRIGLYCERIDES 70 <150 mg/dL [facility] LDL-CHOLESTEROL 60 99 mg/dL (calc) [facility] Comment: Reference range: <100 Desirable range <100 mg/dL for primary prevention; ?? <70 mg/dL for patients with CHD or diabetic patients with > or = 2 CHD risk factors. LDL-C is now calculated using the Alan-Robert calculation, which is a validated novel method providing better accuracy than the Friedewald equation in the estimation of LDL-C. Alan SS et al. JUNG. 2013;310(19): 6921-8681 (http://education.[employer]/faq/CHM792) CHOL/HDLC RATIO 2.7 <5.0 (calc) [facility] NON-HDL CHOLESTEROL 75 <130 mg/dL (calc) [facility] Comment: For patients with diabetes plus 1 major ASCVD risk factor, treating to a non-HDL-C goal of <100 mg/dL (LDL-C of <70 mg/dL) is considered a therapeutic option. Blood Blood / Unknown 02/12/2024 8 :40 AM EDT 02/12/2024 8:41 AM EDT Narrative [facility] - 02/13/2024 7:28 AM EDT FASTING:YES us Leonel Waggoner PA-C LAB - BLOOD DRAW Final Resul t [facility] [address] [address], [facility] [address] [place] [address] * (ABNORMAL) COMPREHENSIVE METABOLIC PANEL (02/12/2024 8:40 AM EDT) GLUCOSE 96 65 - 99 mg/dL [facility] Comment: ?Fasting reference interval UREA NITROGEN (BUN) 19 7 - 25 mg/dL [facility] CREATININE (blood) 0.99 0.70 - 1.35 mg/dL [facility] EGFR 83 > OR = 60 mL/min/1. 73m2 [facility] BUN/CREATININE RATIO SEE NOTE: [facility] Comment: ?? Not Reported: BUN and Creatinine are within ?? reference range. ? SODIUM 141 135 - 146 mmol/L [facility] POTASSIUM 4.0 3.5 - 5.3 mmol/L [facility] CHLORIDE 103 98 - 110 mmol/L [facility] CARBON DIOXIDE 28 20 - 32 mmol/L [facility] CALCIUM 9.6 8.6 - 10.3 mg/dL [facility] PROTEIN, TOTAL 7.3 6.1 - 8.1 g/dL [facility] ALBUMIN 4.6 3.6 - 5.1 g/dL [facility] GLOBULIN 2.7 1.9 - 3.7 g/dL (calc) [facility] ALBUMIN/GLOBULI N RATIO 1.7 1.0 - 2.5 (calc) [facility] BILIRUBIN, TOTAL 1.4(H) 0.2 - 1.2 mg/dL [facility] [employer] [facility] ALKALINE PHOSPHATASE 74 35 - 144 U/L [facility] [employer] [facility] AST 15 10 - 35 U/L [facility] ALT 17 9 - 46 U/L [facility] Blood Blood / Unknown 02/12/2024 8 :40 AM EDT 02/12/2024 8:41 AM EDT Narrative [facility] - 02/13/2024 7:28 AM EDT FASTING:YES Leonel Waggoner PA-C LAB - BLOOD DRAW Edited Resu lt - Final [facility] [address] [address], [place] [facility] [address] [place] [address] * US ABDOMINAL AORTA REAL TIME SCREEN STUDY AAA (04/08/2023 3:00 AM EST) 04/08/2023 3:00 AM EST Roshan Boucher MD IMG ULTRASOUND Edited Result - Final [facility] Corporate Office [address], [address] [place] [address], [place] [phone] * COLONOSCOPY (04/02/2017 10:26 AM EST) Impressions Marni Henning MA - 04/02/2017 10:26 AM EST Colonoscopy impression: Moderate diverticulosis of the whole colon and but most pronounced in the sigmoid External hemorrhoids Colon otherwise normal to terminal ileum Repeat 10 years Provider [facility] PROCEDURES Final Result * (ABNORMAL) HEPATITIS A,B,C PANEL (11/15/2016 9:35 AM EDT) HEPATITIS B SURFACE ANTIBODY NEGATIVE NEGATIVE [facility] HEPATITIS B SURFACE ANTIGEN NEGATIVE NEGATIVE [facility] Comment: Over the counter supplements containing high doses of biotin may interfere with this assay. ??If interference is suspected, patients shoud be retested after refraining from biotin supplements for 72 hours. HEPATITIS C VIRUS DIAGNOSTIC NEGATIVE NEGATIVE [facility] HEPATITIS A ANTIBODY TOTAL POSITIVE(A) NEGATIVE [facility] Comment: Over the counter supplements containing high doses of biotin may interfere with this assay. ??If interference is suspected, patients shoud be retested after refraining from biotin supplements for 72 hours. HEPATITIS B CORE ANTIBODY NEGATIVE NEGATIVE [facility] Blood specimen (specimen) Blood / Unknown 11/15/2016 9:35 AM EDT 11/15/2016 9:38 AM EDT Narrative [facility] - 11/15/2016 12:47 PM EDT [facility] [address] [place] [address] PT ID [id number] ORD# [id number] Ana Kennedy BED MACHINE OPERATOR LAB - BLOOD DRAW Edited Result - Final [facility] [address] [place] [address], from Last 3 Months or Most Recently Relevant to Health Maintenance Insurance [facility] Member Subscriber Plan / Payer (Ef fective 2017-Present) Name:Nathaniel Quinonez Relation to Subscriber:Self Name:Nathaniel Quinonez Payer ID:[id number] Group ID:Not on file Type:Indemnity Address: [address] [facility] [place] [address] Care Teams Duplicating Machine Servicer Relationship Specialty Start Date End Date Leonel Waggoner PA-C [facility] [place] [address] PCP - General FAMILY MEDICINEHENRIETTA 12/07/19
== END 2024-06-05 11:47 | disposition home or self-care (01) ==
PROVIDERS: PCP Physician Assistant Medical; Visit Provider Urology
DX: Z13.9 Encounter for screening, unspecified (principal); N32.0 Bladder-neck obstruction
CPT/HCPCS: 99214; G2211

== ENCOUNTER → 2024-06-05 10:21 | Outpatient (BNVA) | payer OTHER, SELFPAY | PROVIDERS: PCP Physician Assistant Medical; Visit Provider Urology | DX: N40.1 Benign prostatic hyperplasia with lower urinary tract symptoms (principal); N32.0 Bladder-neck obstruction; N13.8 Other obstructive and reflux uropathy; R33.8 Other retention of urine; Z80.42 Family history of malignant neoplasm of prostate | CPT/HCPCS: 81003; 99212 ==

== ENCOUNTER 2024-07-31 13:52 | Outpatient (AMB) | payer OTHER, SELFPAY ==
--- NOTE | 2024-07-31 14:04 | MHC.OFFVIS ---
Intake Visit Reasons: Cysto Intake Note: Pt presents to the office today for a cystoscopy procedure. Cystoscope Lot: [id number] Exp:09/11/26 Allergies No Known Allergies Allergy (Verified 07/31/24 14:04) HPI Comments Details: Nathaniel is a pleasant male. He is a patient of Dr Waggoner. He seen for the following urologic conditions - family history prostate cancer - lower urinary tract symptoms Egyptian translation provided in office by qualified medical dir Here for cystoscopy Trilobar hypertrophy Recommend GreenLight laser On tamsulosin with finasteride Nocturia prior 3-4 times per night with bother Bladder ultrasound Large prostate 100 cc Mild diffuse irregularity and trabeculation of the bladder wall. Incomplete bladder emptying Family history of prostate cancer Has been followed due to prostate cancer in his brother and father Also with some degree of bladder outlet obstruction in weak stream Background diabetes on single agent therapy PSA 08/23 0.83, 08/24 1.2, 07/25 1.2, 08/26 1.6, 07/27 1.1 Normal prostate PFSH Medical History Asthma Hyperlipidemia HTN (hypertension) Family hx of prostate cancer Surgical History H/O umbilical hernia repair Family History Father Prostate cancer Mother Breast cancer Review of Systems Const Denies chills and Denies fever(s) Card Reports no additional complaints and Denies syncope Resp Denies cough GI Denies abdominal pain and Denies heartburn Reports as per HPI and Denies change in libido Neuro Denies syncope Psych Denies change in libido Endo Denies change in libido Physical Exam Const General: cooperative, healthy appearing, comfortable and no acute distress Orientation/consciousness: patient oriented x3 HEENT Face and sinus: Yes normal facial exam Mouth: moist mucous membranes Neck Neck: Yes normal visual inspection, Yes full ROM and Yes trachea midline Chest Chest palpation & inspection: normal inspection of the chest Resp Effort & Inspection: normal respiratory effort, able to speak in complete sentences and no respiratory distress GI Inspection: Yes normal to inspection Back/Spine/Pelvis Cervical Spine: normal cervical lordosis Thoracic/Lumbar Spine: thoracic and lumbar spine normal to inspection Skin General skin exam: no rashes or lesions noted Neuro General: patient oriented x3, gait normal, tone normal and moves all extremities Extrem General: Yes normal to inspection and Yes capillary refill normal Office Procedures Cystoscopy Consent Discussed risk and benefit or proposed procedure with the patient. Information consent for procedure given to the patient. Discussed technical aspects, risks, benefits and alternatives in full. Addressed all of the patient's questions and concerns regarding the procedure. The patient demonstrated knowledge and understanding. They wish to proceed with this procedure. Preparation The patient was prepped in the usual manner. A account receivable associate was present and in the room. Genitalia was prepped with betadine solution in a sterile manner. Lidocaine Jelly 2% was placed into the urethra and 16Fr flexible Olympus cystoscope was inserted into the meatus after adequate lubrication. Procedure Cystoscopy performed- using a disposable Urovue digital 16 Moroccan cystoscope. Meatus uncircumcised Urethra anterior and posterior urethra normal Prostatic Urethra trilobar hyperplasia Bladder examination with retroflexion of cystoscope Bladder Orifices normal shape and position Bladder Capacity median Trabeculations grade 1/2 Cellule Formation yes Diverticulum Formation - Mucosal Erythema - Bladder Tumor - [id number] DISPOSABLE SCOPE URO-G FLEXIBLE SCOPE Procedure code (CPT) selection complete Office Meds lidocaine HCl 2 % mucosal jelly in applicator Performing Provider: Danial Wiley MD Performing Location: [facility] Administered by: Mirna Robison RN on 07/31/24 14:38 Dose Route Admin Location Dispensed Lot Number Expiration Date NDC Public Health Educator 10 mL intra-urethral 10 mL nitrofurantoin monohydrate/macrocrystals 100 mg capsule Performing Provider: Danial Wiley MD Performing Location: [facility] Administered by: Mirna Robison RN on 07/31/24 14:38 Dose Route Admin Location Dispensed Lot Number Expiration Date NDC Public Health Educator 100 mg PO 1 cap Results AMB Urinalysis, Automated UA Leukoctes 0 Kathy/uL Last Edit by Joann Tobias CMA on 07/31/24 14:16 UA Nitrite Negative Last Edit by Joann Tobias CMA on 07/31/24 14:16 UA Urobilinogen 0.2 mg/dL Last Edit by Joann Tobias CMA on 07/31/24 14:16 UA Protein 15 mg/dL Last Edit by Joann Tobias CMA on 07/31/24 14:16 UA pH 5.0 Last Edit by Joann Tobias CMA on 07/31/24 14:16 UA Blood 10 Silvio/uL Last Edit by Joann Tobias CMA on 07/31/24 14:16 UA Specific [place] 1.020 Last Edit by Joann Tobias CMA on 07/31/24 14:16 UA Ketone Negative Last Edit by Joann Tobias CMA on 07/31/24 14:16 UA Bilirubin 0 mg/dL Last Edit by Joann Tobias CMA on 07/31/24 14:16 UA Glucose 0 mg/dL Last Edit by Joann Tobias CMA on 07/31/24 14:16 Results Reviewed Results Reviewed: Laboratory Last Values Urine pH (Auto) 5.0 07/31/24 14:14 Specific [place] (Auto) 1.020 07/31/24 14:14 Urine Protein (Auto) 15 mg/dL 07/31/24 14:14 Glucose (UA)(Auto) 0 mg/dL 07/31/24 14:14 Urine Ketones (Auto) Negative 07/31/24 14:14 Urine Blood (Auto) 10 Silvio/uL 07/31/24 14:14 Urine Nitrite (Auto) Negative 07/31/24 14:14 Urine Bilirubin (Auto) 0 mg/dL 07/31/24 14:14 Urine Urobilinogen (Auto) 0.2 mg/dL 07/31/24 14:14 Leukocyte Esterase (Auto) 0 Kathy/uL 07/31/24 14:14 Assessment & Plan Assessment & Plan (1) Family hx of prostate cancer: Code(s): Z80.42 - Family history of malignant neoplasm of prostate Category: Medical (2) Bladder outlet obstruction: Code(s): N32.0 - Bladder-neck obstruction Category: Medical Plan We discussed the nature of the decision and reasonable options for performing a prostate intervention. Interventions include TURP, GreenLight laser enucleation of the prostate, GreenLight laser ablation of the prostate, transurethral incision of the prostate, and I-Tend prostate procedure. Options such as medical therapy were discussed. The relative uncertainties and benefits related to each alternate procedure were adequately discussed. General surgical risks including, but not limited to, pain, bleeding, infection, myocardial infarction, pulmonary embolus, deep vein thrombosis and cerebrovascular accident which may result in further hospitalization were discussed. Full disclosure of the procedure as well as all major risks, benefits and complications were discussed including but not limited to damage to the urethra or bladder neck, recurrent BPH, retrograde ejaculation, bladder infection, urge, de harry frequency, incomplete emptying, dysuria, remote chance of erectile dysfunction, epididymitis, and meatal stenosis. The success rate of the procedure was discussed. Success of the procedure in the short-term does not necessarily guarantee that long-term success will be maintained. Suitable follow up will need to be maintained. The patient showed understanding of discussion. An opportunity was provided for questions to be answered and wishes to proceed with the following procedure. - greenlight laser prostatectomy Orders: Orders AMB Urinalysis Automated Today N32.0 - Bladder-neck obstruction AMB Cystoscopy Today N32.0 - Bladder-neck obstruction, Z80.42 - Family history of malignant neoplasm of prostate Patient Instructions: This note is constructed using voice recognition software. While every effort has been made to ensure accuracy manager garden errors may have been included. Imaging studies, laboratory and physical exam results were discussed and reviewed in detail. No major barriers to patient understanding were identified. An opportunity to ask questions regarding the treatment plan was provided. All questions were answered. The patient expressed understanding and agreement with the above treatment plan. The patient is aware they should contact our office by phone for worsening of their current condition or the appearance of new urologic symptoms. Compliance is encouraged with any medications and followup testing that is ordered. It is a privilege to participate in the urologic care of your patient. If you have any questions or concerns regarding treatment for the above conditions, or other urologic issues, please do not hesitate to contact me. The office telephone contact is [phone]. Sincerely, Dr Danial Wiley MD, C[facility]AN[facility] - Urology Compassionate Specialist Care for the Genitourinary System Coding Level of Care Code Est Pt Level 4 (36029) Diagnoses Family hx of prostate cancer Z80.42 Bladder outlet obstruction N32.0 CPT Codes Cystoscopy - CPT: 43504-[id number] ([id number])
== END 2024-07-31 15:12 | disposition home or self-care (01) ==
LOC: HO.HUSH 13:53
PROVIDERS: PCP Physician Assistant Medical; Visit Provider Urology
DX: N40.1 Benign prostatic hyperplasia with lower urinary tract symptoms (principal); N32.0 Bladder-neck obstruction; Z80.42 Family history of malignant neoplasm of prostate
CPT/HCPCS: 52000; 99214

== ENCOUNTER → 2024-07-31 13:52 | Outpatient (BNVA) | payer OTHER, SELFPAY | PROVIDERS: PCP Physician Assistant Medical; Visit Provider Urology | DX: N32.0 Bladder-neck obstruction (principal); Z80.42 Family history of malignant neoplasm of prostate | CPT/HCPCS: 52000; 81003; 99212 ==

== ENCOUNTER → 2024-10-19 08:35 | Day surgery (SDC) | payer OTHER, SELFPAY ==
--- OUTSIDE RECORDS SUMMARY | 2024-09-21 11:39 | XMS_ITS | Clinical Summary ---
[facility] Address [address] [place] [address] Care Team Providers Care Duty Engineer Name Role Phone Ana Kennedy NP Primary Care Provider [phone] Social History Tobacco Use Types Packs/Day Years Used Date Smoking Tobacco: Never Assessed Sex and Gender Information Value Date Recorded Sex Assigned at Not on file Legal Sex Male 4:46 PM EST Gender Identity Not on file Sexual Orientation Not on file Plan of Treatment Health Maintenance Due Date Last Done Comments DTaP,Tdap,and Td Vaccines (1 - Tdap) 10/03/1975 Pneumococcal Vaccine: 50+ Ye ars (1 of 2 - PCV) 10/03/1975 Zoster Vaccines (1 of 2) 2006 RSV Immunization Adult Patie nts (1 - Risk 60-74 years 1-dose series) 2016 Colorectal Cancer Screening: Colonoscopy 04/04/2022 Falls Risk Assessment 04/04/2022 Hepatitis C Screening 04/04/2022 Lung Cancer Screening (Low D ose CT) 04/04/2022 Social Influencers of Health Screening 04/04/2022 COVID-19 Vaccine ( - 2023-2 5 season) 2024 Influenza Vaccine (Season Ended) 2025 Hypertension/CHF/CAD Annual BMP Blood Test 07/23/2025 07/23/2024 Depression Screening 09/09/2025 09/09/2024 Cholesterol Screening (Lipid Panel) 07/23/2029 07/23/2024 Abdominal Aortic Aneurysm (A AA) Screen Completed [...] patient's age to complete this topic Meningococcal B Vaccine Aged Out No l onger eligible based on patient's age to complete [...] AM EST Narrative 04/11/2023 4:33 PM EST [facility] Diagnostic Imaging Department [address] [place] [address] Patient: ??NATHANIEL DEE ?/Age/Sex: 1955 - 67 - M Unit#: ??[id number] ? Location/Status: ??[facility]/REG CLI ? Mnemonic/Ordering Site: [...] by: ??FRANDY CARROLL MD Dic Date/Time: ??04/11/23 1625 Sign date/Time: ??04/11/23 1633 Procedure Note Frandy Carroll MD - 06/11/2023 [facility] Diagnostic Imaging Department [address] [place], [place] [id number] Patient: NATHANIEL DEEO.B./Age/Sex: 1955 - 67 - M Unit#: [id number] Location/Status: [facility] CLI [facility] Ordering Physician: YOLANDA BOUCHER MD US Abdomen Aorta Scr Study AAA - 04/08/23920 Report Status:Signed INDICATION: Screening for abdominal aortic aneurysm FINDINGS: Screening study ultrasound of the aorta performed. Aortic measurements: Proximal: 3.4 cm Mid: 3.0 cm Distal: 2.4 cm Patent iliac vessels. IMPRESSION: No abdominal aortic aneurysm. Dictating Physician: FRANDY CARROLL MD Electronically Signed by: FRANDY CARROLL MD Dic Date/Time: 04/11/23 1625 Sign date/Time: 04/11/23 1633 us Yolanda Boucher MD [facility] US PROCEDURES Final Result from Last 3 Months or Most Recently Relevant to Health Maintenance Care Teams Duty Engineer Relationship Specialty Start Date End Date Ana Kennedy NP PCP - General Family Medicine 07/15/17
--- OUTSIDE RECORDS SUMMARY | 2024-09-21 11:39 | XMS_ITS | Encounter Summary ---
Author Organization [facility] Address [address] [place] [address] Care Team Providers Care Dental Instrument Maker Name Role Phone Leonel Waggoner PA-C Primary Care Provider Encounter Details Date Type Department Care Team (Late st Contact Info) Description 05/29/2023 Interim Notes [facility] [address] [phone] Meagan Woodard [place] [address] [place], [place] [phone] Social History Tobacco Use Types Packs/Day Years [...] as of this encounter Plan of Treatment Not on file documented as of this encounter Goals Goal Patient Goal Type Associated Problems Recent Progress Patient-Stated? Author Blood Pressure < 130/80 Blood Pressure Essential hypertension 122/82(2024 1:28 PM EDT) No Stephanie Haddad, PharmD documented as of this encounter Visit Diagnoses Not on filedocumented in this encounter Additional Health Concerns Assessment Noted Time PHQ-9 Depression Total Score: 0 05/28/19 24 3:39 PM PST documented as of this encounter Care Teams Dental Instrument Maker Relationship Specialty Start Date End Date Leonel Waggoner PA-C [address] [place] [address] PCP - General FAMILY MEDICINEHENRIETTA 12/07/19 documented as of this encounter
--- OUTSIDE RECORDS SUMMARY | 2024-09-21 11:40 | XMS_ITS | Clinical Summary ---
Author Organization [facility] Address [address] [place] [address] Care Team Providers Care Bass Viol Repairer Name Role Phone Ana Kennedy Primary Care Provider [phone] Allergies Active Allergy Reactions Criticality Noted Date [...] age to complete this topic Care Teams Bass Viol Repairer Relationship Specialty Start Date End Date Ana Kennedy [address] [place] [id number] PCP - General Family Medicine 07/15/17
--- OUTSIDE RECORDS SUMMARY | 2024-09-21 11:40 | XMS_ITS | Clinical Summary ---
Author Organization [facility] Address [address] [place] [address] Care Team Providers Care Kitchen Worker Name Role Phone Leonel Waggoner PA-C Primary Care Provider Source Comments PLEASE NOTE, if this patient [...] Reaction(s): Unknown Pollen Extracts High 12/01/2020 Medications compr.suzanneing,alessandra goyal,earlene,hildaIndi cations:Bilateral lower extremity edema 3 PAIRS COMPRESSION STOCKINGS. Dx: R60.0. 20-30 mmHg. 3 Each 019 Active zolpidem (AMBIEN) 10 mg tabletIndications :Anxiety and depression Take 1 Tab by mouth nightly at bedtime 30 Tab 019 Active FLUoxetine (PROZAC) 20 mg capsuleIndication s:Anxiety and depression Take 1 Cap by mouth once daily 30 Cap 020 Active albuterol sulfate (PROVENTIL) 2.5 mg /3 mL (0.083 %) nebulizer solutionIndicatio ns:Pulmonary emphysema, unspecified emphysema type (HCC-CMS) Take 3 mL by nebulization every 6 (six) hours as needed for wheezing 120 Vial 2 021 Active miscellaneous medical supply miscIndications:E ssential hypertension by miscellaneous route 2 (two) times daily Dx: HTN. Portable digital blood pressure machine, disp#1, no refill. 1 Each Active NUCALA 100 mg/mL atIn 022 Active marianela.stocking, thigh,reg,med See Instructions, # 2 each, Refills 2, Tot. Refills 2, Maintenance, surgical, knee length 20-30 mm Hg Dx: [facility] bilateral legs, 07/07/21 8:20:00 EST, Supply Active MISCELLANEOUS MEDICAL SUPPLY MISCIndications:C hronic right-sided thoracic back pain by miscellaneous route once daily Dx: chronic right sided thoracic pain ALIA: 99 Supply: Removable shower head with handle. 1 Each Active MISCELLANEOUS MEDICAL SUPPLY MISCIndications:C hronic right-sided thoracic back pain by miscellaneous route once daily DX: chronic right sided thoracic pain ALIA: 99 Supply: leg pillow 1 Each 024 Active tamsulosin (FLOMAX) 0.4 mg 24 hr capsule Take 0.4 mg by mouth nightly at bedtime Active hydrOXYzine HCL (ATARAX) 25 mg tablet Active clobetasoL (TEMOVATE) 0.05 % ointment APPLY TO BACK, ARMS TWICE A DAY NEEDED FLARES, DECREASE USE SYMPTOMS IMPROVE Active triamcinolone (KENALOG) 0.1 % ointment APPLY TO TRUNK, ARMS, LEGS 2 TIMES DAILY NEEDED FOR FLARES Active tadalafiL (CIALIS) 10 mg tabletIndications :Other male erectile dysfunction Take 10 mg as a single dose =30 minutes prior to anticipated sexual activity; do not take more than once daily. Erectile function may be improved for up to 36 hours following a single dose. Adjust dose based on effectiveness and tolerability; may decrease to 5 mg 10 Tablet 2 024 Active naproxen (NAPROSYN) 500 mg tabletIndications :Arthritis,Pain in both feet Take 1 Tablet by mouth 2 (two) times daily with a meal 60 Tablet 5 024 Active diclofenac sodium (VOLTAREN) 1 % gelIndications:Ri ght elbow pain APPLY TOPICALLY 2 (TWO) TIMES DAILY TO AFFECTED AREA 100 g 2 024 Active atorvastatin (LIPITOR) 40 mg tabletIndications :Mixed hyperlipidemia TAKE 1 TABLET BY MOUTH EVERY DAY 90 Tablet 1 025 Active amLODIPine (NORVASC) 10 mg tabletIndications :Essential hypertension TAKE 1 TABLET BY MOUTH EVERY DAY 90 Tablet 1 025 Active albuterol HFA 90 mcg/actuation inhalerIndication s:Pulmonary emphysema, unspecified emphysema type (HCC-CMS) INHALE 2 PUFFS INTO THE LUNGS EVERY 4 (FOUR) HOURS NEEDED FOR SHORTNESS OF BREATH OR WHEEZING 18 Each 2 025 Active metFORMIN (GLUCOPHAGE) 500 mg tabletIndications :Prediabetes Take 1 Tablet by mouth once daily with breakfast 90 Tablet 1 025 Active tirzepatide, weight loss, (ZEPBOUND) 5 mg/0.5 mL pnijIndications:E ssential hypertension,Mixe d hyperlipidemia,Pr ediabetes,BMI 32.0-32.9,adult Inject 5 mg into the skin once a week 2 mL 2 025 Active TRELEGY ELLIPTA 100-62.5-25 mcg inhalerIndication s:Pulmonary emphysema, unspecified emphysema type (HCC-CMS) INHALE 1 SOPLIDO POR VIA ORAL HACIA LOS PULMONES ANDIE VEZ AL MARTHA 60 Each 3 025 Active fluticasone-umecl idinum-vilanterol (TRELEGY ELLIPTA) 100-62.5-25 mcg inhalerIndication s:Pulmonary emphysema, unspecified emphysema type (HCC-CMS) Inhale 1 Puff into the lungs once daily 60 Each 5 024 2024 Discontinued tirzepatide, weight loss, (ZEPBOUND) 2.5 mg/0.5 mL pnijIndications:E ssential hypertension,Mixe d hyperlipidemia,Pr ediabetes,BMI 32.0-32.9,adult Inject 2.5 mg into the skin once a week 2 mL 025 2024 Discontinued(T herapy completed/Not needed) Active Problems Problem Noted Date Diagnosed Date [...] No fractures or dislocation. Moderate persistent asthma ([facility]) 05/25/2018 Overview (01/04/2019): 04/14/18 - [facility] PULM F/U Dr. Horton: Had frequent asthma [...] 05/09/2018 Overview (05/09/2018): 05/07/18 - Seen at [facility] ED c/o low back pain x 2 weeks with BRBPR x [address] Abdomen/Pelvis: NO evidence of acute intra-abdominal process. NO specific explanation for clinical symptomatology. Colonic diveticulosis w/o CT signs of acute diverticulitis. F/U PCP Recurrent major depressive d isorder, in partial remission ([facility] V24) 01/28/2018 Prediabetes 01/28/2018 Overview (01/28/2018): Lab Results Component Value Date HGBA1C 5.7 01/28/2018 HGBA1C 5.5 12/23/2014 Epigastric mass 08/26/2016 Overview (08/26/2016): [facility] in 2016 negative Recurrent epigastric hernia 07/20/2016 MAO on CPAP 09/18/2015 Overview (09/18/2015): [facility] Hyperlipidemia 12/23/2014 Essential hypertension 12/23/2014 COPD (chronic obstructive pulmonary disease) ( [facility]) 12/23/2014 Overview (03/27/2016): [facility] Simran 2014: Pulmonary hyperinflation in keeping with COPD Arthritis 12/23/2014 Overview (12/23/2014): Lower back Resolved Problems Problem Noted Date Diagnosed Date Resolved Date Hx of colonoscopy with polypectomy 09/26/2015 05/09/2018 Overview (09/26/2015): [facility] 2015, tubular adenoma, follow up in one year due to poor prep Encounters Date Type Department Care Team Description 09/09/2024 1:20 PM EDT Office Visit [address] [phone] Leonel Waggoner PA-C Essential hypertension (Primary Dx); Mixed hyperlipidemia; Prediabetes; BMI 32.0-32.9,adult 08/25/2024 Interim Notes [address] [phone] Veda Camargo MS 07/22/2024 10:20 AM EDT Office Visit [address] [address] Leonel Waggoner PA-C Essential hypertension (Primary Dx); Mixed hyperlipidemia; Prediabetes; Acute pain of left shoulder; BMI 32.0-32.9,adult from Last 3 Months Immunizations Immunization Administration Dates Next Due Flu, High Dose, 65y+, Fluzon e High Dose 01/30/2022 Flu, Preservative Free 12/19/2019,2018,12/29/2018,01/17,01/17/2018,12/19/2016,12/19/2016 ,01/18/2016,01/18/2016 INFLUENZA, SEASONAL, INJECTABLE 12/19/2016 Influenza (FLUZONE), high-do se, trivalent, PF 02/11/2024 MODERNA COVID-19 VACCINE BIV ALENT, BLUE CAP, 6M+ 01/30/2022 Moderna COVID-19 Vaccine, re d cap blue label, 12+ Primary Series 03/20/2021,07/30/2020,07/02/2020 PNEUMOCOCCAL CONJUGATE PCV 2 0 (Prevnar) 09/27/2022 PNEUMOCOCCAL POLYSACCHARIDE PPV23 (Pneumovax 23) 10/26/2021,05/05/2015 TDAP 06/21/2017,11/15/2016 ZOSTER VACCINE, RECOMBINANT (SHINGRIX) 0,06/02/2019 [...] Social Connections Answer Date Recorded Connectedness 1 09/09/2024 Financial Resource Strain Answer Date R ecorded Financial Resource Strain 1 2024 Stress Answer Date Recorded Stress 1 09/09/2024 Physical Activity Answer Date Recorded Physical Activity 0 09/01/2020 Food Insecurity Answer Date Recorded Food 1 09/09/2024 Transportation Needs Answer Date Record ed Transportation 1 09/09/2024 Housing Stability Answer Date Recorded Housing 1 09/09/2024 Safety and Environment Answer Date Anjum rded Safety 1 10/10/2023 Utilities Answer Date Recorded Utilities 1 09/09/2024 Employment Answer Date Recorded Stress 0 09/01/2020 Sex and Gender Information Value Date Recorded Sex Assigned at Male 02/14/2017 6:15 AM PDT Legal Sex Male 6:03 AM PDT Gender Identity Male 02/14/2017 6:15 AM PDT Sexual Orientation Straight 02/14/2017 6: 15 AM PDT Last Filed Vital Signs Vital Sign Reading Time Taken Comments Blood Pressure 122/82 09/09/2024 1:28 PM EDT Pulse 76 09/09/2024 1:28 PM EDT Temperature 36.7 ??C (98 ??F) 09/09/2024 1:28 PM EDT Respiratory Rate 16 09/09/2024 1:28 PM EDT Oxygen Saturation 96% 09/09/2024 1:28 PM EDT Inhaled Oxygen Concentration - - Weight 101.8 kg (224 lb 6.4 oz) 09/09/2024 1:28 PM EDT Height 180.3 cm (5' 11 ) 09/09/2024 1:28 PM EDT Body Mass Index 31.3 09/09/2024 1:28 PM EDT Plan of Treatment Health Maintenance Due Date Last Done Comments CT Colonography 2001 Fecal DNA 2001 Flexible Sigmoidoscopy 2001 FIT/gFOBT 04/02/2018 04/02/2017, 09/04 (Managed by Outside Provider) Medicare Annual Wellness Visit 10/09/2024 10/10/2023, 09/27/2022, 03/13/2021, Additional history exists Depression Monitoring 12/10/2024 09/09/2024 , 07/22/2024, 02/11/2024, Additional history exists [id number] ( season) 2024 01/30/2022, 03/20/2021, 07/30/2020, Additional history exists Postponed from 01/05/2024 (Patient postponement) Lung Cancer Screening 03/04/2025 03/04/2024 Falls Prevention 07/22/2025 07/22/2024, , 01/30/2022, Additional history exists Tobacco Screening 07/22/2025 07/22/2024 Diabetes Screening 07/23/2025 07/23/2024, 0 07/23/2024, 02/12/2024, Additional history exists Lipid Screening 07/23/2025 07/23/2024, 10/01/2024, 10/11/2023, Additional history exists Colonoscopy 04/02/2027 04/02/2017 Colorectal Cancer Screening 04/02/2027 Imm-DTaP/Tdap/Td (3 - Td or Tdap) 06/21/2027 06/21/2017, 11/15/2016 Hepatitis C Screening Completed 11/15/2016 Imm-Zoster, Recombinant Completed 11/28/2019, 06/02 Imm-Pneumococcal 65+ Completed 09/27/2022, 10/26/2021, 05/05/2015 Abdominal Aortic Aneurysm Screening Completed 04/08/2023 Imm-Influenza Completed 02/11/2024, 01/05, 01/30/2022, Additional history exists Alcohol and Drug Screen Completed 09/10/19, 07/22/2024, 02/11/2024, Additional history exists Goals Goal Patient Goal Type Associated Problems Recent Progress Patient-Stated? Author Blood Pressure < 130/80 Blood Pressure Essential hypertension 122/82(2024 1:28 PM EDT) No Stephanie Haddad, David Procedures Procedure Name Priority Date/Time Associated Diagnosis Comments REFERRAL SCANNED DOCUMENT 08/24/2024 3:00 AM EDT REFERRAL SCANNED DOCUMENT 07/31/2024 3:00 AM EDT HGBA1C W/MPG Routine 07/23/2024 8:37 AM EDT Prediabetes LIPID PANEL Routine 07/23/2024 8:37 AM EDT Essential hypertension Mixed hyperlipidemia Prediabetes COMPREHENSIVE METABOLIC PANEL Routine 07/23/2024 8:37 AM EDT Essential hypertension Mixed hyperlipidemia Prediabetes BLOOD COUNT COMPLETE AUTO&AUTO DIFRNTL WBC Routine 07/23/2024 8:37 AM EDT Essential hypertension Mixed hyperlipidemia Prediabetes LOW DOSE CT LUNG SCREENING Routine 03/04/2024 3:00 AM EDT Former smoker US ABDOMINAL AORTA REAL TIME SCREEN STUDY AAA Routine 04/08/2023 3:00 AM EST Health care maintenance COLONOSCOPY Routine 04/02/2017 10:26 AM EST HEPATITIS A,B,C PANEL Routine 11/15/2016 9:35 AM EDT Routine general medical examination at a health care facility from Last 3 Months or Most Recently Relevant to Health Maintenance Results * REFERRAL SCANNED DOCUMENT (08/24/2024 3:00 AM EDT) Only the most recent of2 resultswithin the time period is included. 08/24/2024 3:00 AM EDT [facility] Provider Default SCAN REFERRAL Final Resu lt * (ABNORMAL) HGBA1C W/MPG (07/23/2024 8:37 AM EDT) HEMOGLOBIN A1C 5.8(H) <5.7 % of total Hgb [facility] Comment: For someone without known diabetes, a hemoglobin A1c value between 5.7% and 6.4% is consistent with prediabetes and should be confirmed with a follow-up test. For someone with known diabetes, a value <7% indicates that their diabetes is well controlled. A1c targets should be individualized based on duration of diabetes, age, comorbid conditions, and other considerations. This assay result is consistent with an increased risk of diabetes. Currently, no consensus exists regarding use of hemoglobin A1c for diagnosis of diabetes for children. MEAN PLASMA GLUCOSE 129 mg/dL (calc) [facility] Blood Blood / Unknown 07/23/2024 8 :37 AM EDT 07/23/2024 8:37 AM EDT Narrative [employer] [facility] - 07/24/2024 8:25 AM EDT FASTING:YES Leonel Waggoner PA-C LAB - BLOOD DRAW Final Resul t [facility] [address] [place] [address], Level [address] [address] * BLOOD COUNT COMPLETE AUTO&AUTO DIFRNTL WBC (07/23/2024 8:37 AM EDT) WHITE BLOOD CELL COUNT 5.6 3.8 - 10.8 Thousand/ uL [facility] RED BLOOD CELL COUNT 4.78 4.20 - 5.80 Million/u L [facility] HEMOGLOBIN 14.6 13.2 - 17.1 g/dL [facility] HEMATOCRIT 44.7 38.5 - 50.0 % [facility] MCV 93.5 80.0 - 100.0 fL [facility] MCH 30.5 27.0 - 33.0 pg [facility] MCHC 32.7 32.0 - 36.0 g/dL [facility] Comment: For adults, a slight decrease in the calculated MCHC value (in the range of 30 to 32 g/dL) is most likely not clinically significant; however, it should be interpreted with caution in correlation with other red cell parameters and the patient's clinical condition. RDW 13.5 11.0 - 15.0 % [facility] PLATELET COUNT 242 140 - 400 Thousand/ uL [facility] MPV 10.7 7.5 - 12.5 fL [facility] ABSOLUTE NEUTROPHILS 2,363 1,500 - 7,800 cells/uL [facility] ABSOLUTE LYMPHOCYTES 2,671 850 - 3,900 cells/uL [facility] ABSOLUTE MONOCYTES 476 200 - 950 cells/uL [facility] ABSOLUTE EOSINOPHILS 62 15 - 500 cells/uL [facility] ABSOLUTE BASOPHILS 28 0 - 200 cells/uL [facility] NEUTROPHILS PCT 42.2 % QUES [employer] [facility] LYMPHOCYTES 47.7 % [employer] [facility] MONOCYTES 8.5 % Note DIAG [employer] [facility] EOSINOPHILS 1.1 % [employer] [facility] BASOPHILS 0.5 % [employer] [facility] Blood Blood / Unknown 07/23/2024 8 :37 AM EDT 07/23/2024 8:37 AM EDT Narrative [employer] [facility] - 07/24/2024 8:25 AM EDT FASTING:YES Leonel Waggoner PA-C LAB - BLOOD DRAW Edited Resu lt - Final [employer] [facility] [address] [address], Level [address] [address] * LIPID PANEL (07/23/2024 8:37 AM EDT) CHOLESTEROL, TOTAL 126 <200 mg/dL Level [facility] HDL CHOLESTEROL 43 > OR = 40 mg/dL [facility] TRIGLYCERIDES 75 <150 mg/dL [facility] LDL-CHOLESTEROL 67 99 mg/dL (calc) Level [facility] Comment: Reference range: <100 Desirable range <100 mg/dL for primary prevention; ?? <70 mg/dL for patients with CHD or diabetic patients with > or = 2 CHD risk factors. LDL-C is now calculated using the Karrie calculation, which is a validated novel method providing better accuracy than the Friedewald equation in the estimation of LDL-C. Alan ASENCIO et al. JUNG. 2013;310(19): 9863-7329 (http://education.Forgame/faq/GSO902) CHOL/HDLC RATIO 2.9 <5.0 (calc) [facility] NON-HDL CHOLESTEROL 83 <130 mg/dL (calc) [facility] Comment: For patients with diabetes plus 1 major ASCVD risk factor, treating to a non-HDL-C goal of <100 mg/dL (LDL-C of <70 mg/dL) is considered a therapeutic option. Blood Blood / Unknown 07/23/2024 8 :37 AM EDT 07/23/2024 8:37 AM EDT Narrative [facility] [facility] - 07/24/2024 8:25 AM EDT FASTING:YES Leonel Waggoner PA-C LAB - BLOOD DRAW Final Resul t [facility] [address] [place] [address], [facility] [address] [place] [phone] * COMPREHENSIVE METABOLIC PANEL (07/23/2024 8:37 AM EDT) [facility] GLUCOSE 93 65 - 99 mg/dL [facility] Comment: ?Fasting reference interval UREA NITROGEN (BUN) 20 7 - 25 mg/dL [facility] CREATININE (blood) 0.90 0.70 - 1.35 mg/dL [facility] EGFR 94 > OR = 60 mL/min/1. 73m2 [facility] BUN/CREATININE RATIO SEE NOTE: [facility] Comment: ?? Not Reported: BUN and Creatinine are within ?? reference range. ? SODIUM 142 135 - 146 mmol/L [facility] POTASSIUM 4.4 3.5 - 5.3 mmol/L [facility] CHLORIDE 105 98 - 110 mmol/L [employer] [facility] CARBON DIOXIDE 31 20 - 32 mmol/L [employer] [facility] CALCIUM 9.1 8.6 - 10.3 mg/dL [employer] [facility] PROTEIN, TOTAL 7.0 6.1 - 8.1 g/dL [employer] [facility] ALBUMIN 4.3 3.6 - 5.1 g/dL [employer] [facility] GLOBULIN 2.7 1.9 - 3.7 g/dL (calc) [employer] [facility] ALBUMIN/GLOBULI N RATIO 1.6 1.0 - 2.5 (calc) [employer] [facility] BILIRUBIN, TOTAL 1.1 0.2 - 1.2 mg/dL [employer] [facility] ALKALINE PHOSPHATASE 76 35 - 144 U/L [employer] [facility] AST 13 10 - 35 U/L [employer] [facility] ALT 14 9 - 46 U/L [employer] [facility] Blood Blood / Unknown 07/23/2024 8 :37 AM EDT 07/23/2024 8:37 AM EDT Narrative [employer] [facility] - 07/24/2024 8:25 AM EDT FASTING:YES Leonel Waggoner PA-C LAB - BLOOD DRAW Edited Resu lt - Final [employer] [address] [address], [employer] [address] [phone] * Lung Cancer Screening Referral, Low Dose Chest CT Order (03/04/2024 3:00 AM EDT) 03/04/2024 3:00 AM EDT us Leonel Waggoner PA-C IMG CT Final Result * US ABDOMINAL AORTA REAL TIME SCREEN STUDY AAA (04/08/2023 3:00 AM EST) 04/08/2023 3:00 AM EST us Roshan Boucher MD IMG ULTRASOUND Edited Result - Final [facility] Corporate Office [address], [address] [place] [address], * COLONOSCOPY (04/02/2017 10:26 AM EST) Impressions Marni Henning MA - 04/02/2017 10:26 AM EST Colonoscopy impression: Moderate diverticulosis of the whole colon and but most pronounced in the sigmoid External hemorrhoids Colon otherwise normal to terminal ileum Repeat 10 years us Provider [facility] PROCEDURES Final Result * (ABNORMAL) HEPATITIS A,B,C PANEL (11/15/2016 9:35 AM EDT) HEPATITIS B SURFACE ANTIBODY NEGATIVE NEGATIVE [facility] HEPATITIS B SURFACE ANTIGEN NEGATIVE NEGATIVE [facility] Comment: Over the counter supplements containing high doses of biotin may interfere with this assay. ??If interference is suspected, patients shoud be retested after refraining from biotin supplements for 72 hours. HEPATITIS C VIRUS DIAGNOSTIC NEGATIVE NEGATIVE [facility] HEPATITIS A ANTIBODY TOTAL POSITIVE(A) NEGATIVE [facility] Comment: Over the counter supplements containing high doses of biotin may interfere with this assay. ??If interference is suspected, patients shoud be retested after refraining from biotin supplements for 72 hours. HEPATITIS B CORE ANTIBODY NEGATIVE NEGATIVE [facility] Blood specimen (specimen) Blood / Unknown 11/15/2016 9:35 AM EDT 11/15/2016 9:38 AM EDT Narrative [facility] - 11/15/2016 12:47 PM EDT [employer] [address] [place] [address] PT ID [id number] ORD# [id number] Ana Kennedy NP LAB - BLOOD DRAW Edited Result - Final [facility] [address] [place] [address], from Last 3 Months or Most Recently Relevant to Health Maintenance Insurance [facility] Member Subscriber Plan / Payer (Ef fective 2017-Present) Name:Nathaniel Quinonez Relation to Subscriber:Self Name:Nathaniel Quinonez Payer ID:[id number] Group ID:Not on file Type:Indemnirafaela Address: [facility] [address] [address] Care Teams Kitchen Worker Relationship Specialty Start Date End Date Leonel Waggoner PA-C [address] [place] [address] PCP - General FAMILY MEDICINEHENRIETTA 12/07/19
[2024-10-15 12:47] VITALS: BMI 28.9
--- NOTE | 2024-10-16 09:06 | HO.ANESPROP2 ---
HPI - Anesthesia Eval Consult details Narrative: 69yo M for Laser Ablation Prostate w/Green Light Medically optimized per [facility] PMFSH Active Problems Active Problems: All Active Problems Bladder outlet obstruction (Acute) Family hx of prostate cancer (Acute) Past Medical History Medical History (Updated 10/15/24 @ 12:44 by Rochelle Rider RN) Sleep apnea Asthma Hyperlipidemia HTN (hypertension) Family hx of prostate cancer Family History Family History Father Prostate cancer Mother Breast cancer Surgical History Surgical History (Updated 10/15/24 @ 12:46 by Rochelle Rider RN) H/O colonoscopy H/O umbilical hernia repair Meds Allergies Allergy/AdvReac Type Severity Reaction Status Date / Time lisinopril Allergy Unknown Verified 10/15/24 12:45 Home Medications ?Medication ?Instructions ?Recorded ?Confirmed ?Last Taken ?Type amlodipine 10 mg tablet 10 mg PO DAILY 09/02/20 10/22/23 Unknown History atorvastatin 40 mg tablet 40 mg PO BEDTIME 09/02/20 10/22/23 Unknown History diclofenac sodium 1 % topical gel g topical BID 09/02/20 10/22/23 Unknown History fluoxetine 20 mg capsule 20 mg PO DAILY 09/02/20 10/22/23 Unknown History fluticasone 500 mcg-salmeterol 50 1 ea PO BID 09/02/20 10/22/23 Unknown History mcg/dose blistr powdr for inhalation metformin 500 mg tablet 500 mg PO QAM 09/02/20 10/22/23 Unknown History zolpidem 10 mg tablet 10 mg PO BEDTIME 09/02/20 10/22/23 Unknown History albuterol sulfate 90 mcg/actuation 2 puff inhalation Q4H PRN wheezing 08/24/21 10/22/23 Unknown History aerosol inhaler cetirizine 10 mg tablet 10 mg PO BEDTIME 08/24/21 10/22/23 Unknown History montelukast 10 mg tablet 10 mg PO BEDTIME 08/24/21 10/22/23 Unknown History Exam Height,Weight and Vital Signs: Height 6 ft 2.02 in Weight 102 kg Pertinent Lab Results Pertinent Lab Results: CBC and BMP 09/2024 from [facility] [place] Narrative Narrative: EKG 09/2024 Ventricular Rate: 64 BPM Atrial Rate: 64 BPM P-R Interval: 206 ms QRS Duration: 102 ms Q-T Interval: 408 ms QTC Calculation(Bazett): 420 ms P Fairton: 21 degrees R Fairton: 68 degrees T Fairton: 46 degrees Normal sinus rhythm Normal ECG No previous ECGs available Confirmed by KRYSTIAN BERNARD ([id number]) on 09/21/2024 1:51:42 PM Assessment and Plan Assessment Anesthesia Assessment: Chart Reviewed
--- NOTE | 2024-10-19 08:45 | PC.NURSE ---
Pt arrived an hour early stating that he feels very sick. He is dizzy and has a fever. Pt self cancelled and went to ER with his .
== END ==
LOC: HO.SSS 08:37
PROVIDERS: PCP Physician Assistant Medical; Visit Provider Urology
DX: N40.1 Benign prostatic hyperplasia with lower urinary tract symptoms (principal); Z53.09 Procedure and treatment not carried out because of other contraindication; R50.9 Fever, unspecified

== ENCOUNTER 2024-11-02 06:45 | Day surgery (SDC) | payer OTHER, SELFPAY ==
--- OUTSIDE RECORDS SUMMARY | 2024-10-27 17:25 | XMS_ITS | Encounter Summary ---
Author Organization [facility] Address [address] [place] [address] Care Team Providers Care Curator Of Education Name Role Phone Leonel Waggoner PA-C Primary Care Provider Encounter Details Date Type Department Care Team (Late st Contact Info) Description 05/29/2023 Interim Notes [facility] Riki [address] [place] [phone] Meagan Woodard [place] [address] [place], [place] [phone] Social History Tobacco Use Types Packs/Day Years [...] documented as of this encounter Care Teams Curator Of Education Relationship Specialty Start Date End Date Leonel Waggoner PA-C [address] [place] [address] PCP - General FAMILY MEDICINEHENRIETTA 12/07/19 documented as of this encounter
--- NOTE | 2024-10-30 11:42 | HO.ANESPROP2 ---
Documented by User: Roro Gandara NP 10/30/24 11:45 HPI - Anesthesia Eval Consult details Narrative: 69yo M for Laser Ablation Prostate w/Green Light Medically optimized per [facility] Preop clinic Per note - asthma controlled with daily albuterol, on Nucala for eosinophilia, MAO with CPAP QHS, HTN controlled PMFSH Active Problems Active Problems: All Active Problems Bladder outlet obstruction (Acute) Family hx of prostate cancer (Acute) Past Medical History Medical History Sleep apnea Asthma Hyperlipidemia HTN (hypertension) Family hx of prostate cancer Family History Family History Father Prostate cancer Mother Breast cancer Surgical History Surgical History H/O colonoscopy H/O umbilical hernia repair Social History Social History Are you a primary field care advocate to a significant other at home: No Do you presently have visiting nurse or other home services: No Patient Tobacco Use Status: Former Tobacco user Tobacco use type: Cigarette Smoked in Last 30 Days: No Use of substances other than those prescribed or required for medical reasons: No Have you been hit, kicked, punched, or otherwise hurt by someone within the past year? If so, by whom?: No Are you DNR?: No Advance Directives: No Advance Directives Information Provided: No Advance Directives on File: No Poor oral hygiene: No Meds Allergies Allergy/AdvReac Type Severity Reaction Status Date / Time lisinopril Allergy Unknown Unknown Verified 11/02/24 07:31 Home Medications ?Medication ?Instructions ?Recorded ?Confirmed ?Last Taken ?Type amlodipine 10 mg tablet 10 mg PO DAILY 09/02/20 11/02/24 11/02/24 History atorvastatin 40 mg tablet 40 mg PO BEDTIME 09/02/20 11/02/24 Unknown History diclofenac sodium 1 % topical gel 1 g topical BID 09/02/20 11/02/24 Unknown History fluticasone 500 mcg-salmeterol 50 1 ea PO BID 09/02/20 11/02/24 Unknown History mcg/dose blistr powdr for inhalation metformin 500 mg tablet 500 mg PO QAM 09/02/20 11/02/24 11/01/24 History zolpidem 10 mg tablet 10 mg PO BEDTIME 09/02/20 11/02/24 Unknown History albuterol sulfate 90 mcg/actuation 2 puff inhalation Q4H PRN wheezing 08/24/21 11/02/24 11/02/24 History aerosol inhaler cetirizine 10 mg tablet 10 mg PO BEDTIME 08/24/21 11/02/24 Unknown History Assessment and Plan Assessment Anesthesia Assessment: Chart Reviewed Documented by User: Minna Haddad MD 11/02/24 07:41 PMFSH Past Medical History Medical History Sleep apnea Asthma Hyperlipidemia HTN (hypertension) Family hx of prostate cancer Family History Family History Father Prostate cancer Mother Breast cancer Family history of problems with anesthesia: No Surgical History Surgical History H/O colonoscopy H/O umbilical hernia repair History of Problems with Anesthesia: No Social History Social History Are you a primary field care advocate to a significant other at home: No Do you presently have visiting nurse or other home services: No Patient Tobacco Use Status: Former Tobacco user Tobacco use type: Cigarette Smoked in Last 30 Days: No Use of substances other than those prescribed or required for medical reasons: No Have you been hit, kicked, punched, or otherwise hurt by someone within the past year? If so, by whom?: No Are you DNR?: No Advance Directives: No Advance Directives Information Provided: No Advance Directives on File: No Poor oral hygiene: No Meds Allergies Allergy/AdvReac Type Severity Reaction Status Date / Time lisinopril Allergy Unknown Unknown Verified 11/02/24 07:31 Home Medications ?Medication ?Instructions ?Recorded ?Confirmed ?Last Taken ?Type amlodipine 10 mg tablet 10 mg PO DAILY 09/02/20 11/02/24 11/02/24 History atorvastatin 40 mg tablet 40 mg PO BEDTIME 09/02/20 11/02/24 Unknown History diclofenac sodium 1 % topical gel 1 g topical BID 09/02/20 11/02/24 Unknown History fluticasone 500 mcg-salmeterol 50 1 ea PO BID 09/02/20 11/02/24 Unknown History mcg/dose blistr powdr for inhalation metformin 500 mg tablet 500 mg PO QAM 09/02/20 11/02/24 11/01/24 History zolpidem 10 mg tablet 10 mg PO BEDTIME 09/02/20 11/02/24 Unknown History albuterol sulfate 90 mcg/actuation 2 puff inhalation Q4H PRN wheezing 08/24/21 11/02/24 11/02/24 History aerosol inhaler cetirizine 10 mg tablet 10 mg PO BEDTIME 08/24/21 11/02/24 Unknown History Exam Airway Mallampati Class: II TM Dist: >3cm Neck ROM: Limited Heart: rrr Assessment and Plan Assessment Anesthesia Assessment: Anesthesia Plan Discussed Final Anesthetic Review Family History of Problems with Anesthesia: No History of Problems with Anesthesia: No NPO: Yes ASA Class: II Final Preanesthetic Review: No Changes in Pt Med Stat, Meds/Allgs Chart Reviewed, Consent Obtained/Reviewed and Anes Risks/Benef Reviewed Patient Risk: Low Procedure Risk: Low Anesthetic Plan Anesthetic Plan: GA Disposition: Standard PACU, Extended PACU, Inp. Admit - Standard Bed, Inp. Admit - IMC and Inp. Admit - ICU
[2024-11-02 07:35] VITALS: BP 134/76; PULSE 75; RESP 16; TEMP 36.4; O2SAT 97; BMI 28.4
--- NOTE | 2024-11-02 07:36 | P.HPSUR_ITS ---
Pre-Procedural Eval Section A - 24 Hr Update-Section A only Date of Service: 11/02/24 The patient is an INPATIENT: No Changes since office visit: No Cold of Flu in the past 2 weeks, No New Medical Problems, No Changes in Medication and No Patient answered all questions The patient has been examined within 24 hours of the surgical procedure. The History & Physical has been completed within 30 days and I have reviewed it.: Yes Section B - Complete if H&P > 30 days Chief Complaint: Benign prostatic hyperplasia with lower urinary Details of Present Illness: Progressive Relevant Social History: None Present Medications: see Short Stay Collaborative assessment Medical History: No relevant PMH History of Previous Operations: No relevant previous surgery Allergies: Allergies Allergy/AdvReac Type Severity Reaction Status Date / Time lisinopril Allergy Unknown Unknown Verified 11/02/24 07:31 Review of Systems Sugical H&P ROS: Negative: Constitution, Cardiovascular, Respiratory, Neurol ogical, Psychiatric, Hem-Onc, Allergic/Immunologic, Gastrointestinal, Genitourinary, Musculoskeletal, Integumentary, Endocrine and Eyes/Ears/Nose/Throat Exam Surgical H&P Exam: Normal: HEENT, Normal: Heart, Normal: Lungs, Normal: Extremities, Normal: Abdomen, Normal: Skin and Normal: Neurological Plan Diagnosis/Plan: Unchanged (GreenLight laser prostatectomy) I have reviewed the history and physical and performed a pertinent physical examination on my patient. No changes have occurred unless specified. Time Spent With Patient Time: Total time managing care of this patient today ____ minutes.
[2024-11-02] MEDS: Lactated Ringers 1,000 ML 100 ML IVCONT (07:45)
[2024-11-02] MEDS: levoFLOXacin/D5W 500 MG/100 ML PIGGYBACK 100 MG IV (08:00)
--- NOTE | 2024-11-02 08:46 | P.OP_ITS ---
Operative Note Operative Note Date of Service: 11/02/24 Narrative: PreOperative Diagnosis: Bladder outlet obstruction Post Operative Diagnosis: Bladder outlet obstruction Procedure: GreenLight Laser Enucleation of the prostate CPT 65186 Surgeon: Dr Dnaial Wiley Anesthesia: General History of bladder outlet obstruction. Treated with alpha-lauren and other medications. Still with symptoms. On cystoscopy in office has mild trilobar hypertrophy. Recommendation for prostate procedure with laser enucleation of prostate. Risks and benefits have been discussed. Focus was placed on development of retrograde ejaculation which is a normal part of this procedure. Procedure: After informed consent was verified the patient was brought to the operating room and placed in a supine position. Anesthesia was administered per protocol. Patient was placed in modified dorsal lithotomy position and prepped and draped in a sterile fashion. Safety pause time-out was confirmed. Antibiotics have been given. A Twenty-four Samoan laser cystoscope was inserted per urethra. No abnormalities were found of the anterior and bulbar urethra. The prostatic urethra shows tight bladder neck lateral lobe crowding. The bladder was examined and both ureteric orifices were seen in their normal positions away from the area of interest. Bladder trabeculation grade 2. Using a GreenLight laser with initial settings of 80 perea incisions were made at the 5 and 7 o'clock position. The incisions were taken down from the bladder neck down to the area just proximal of the veru. These were gradually deepened in order to define the lateral aspects of the median lobe area. The deep boundary of enucleation was defined by the prostate surgical capsule. Once clearly defined the grooves were extended in the lateral directions in order to create a deep groove. The median lobe was then ablated and enucleated tissue released into the bladder with the laser power increased to 120 W. small lobe Once the median lobe area had been cleared, attention was directed to the lateral lobes. Starting with the patient's left lateral lobe. First the 05:00 o'clock groove was further developed. This was moved in the lateral direction to undermine the tissue on the lateral side running from the bladder neck to the prostate apex. The ureteric orifice was used to guide incisions. The laser fiber was placed at the 1 o'clock position and a secondary groove was developed down to the level of prostatic capsule. The creation of a second deep groove defined a segment of intervening tissue similar to a slice of orange. At the apex of the prostate the laser was used to vertically link the two grooves releasing the intervening tissue and creating a segment of tissue. This tissue was then removed with a combination of enucleation and ablation working from the apex toward the bladder neck. A similar procedure was repeated on the patient's right-hand side. The only differences being the position of the lateral groove at he 7 o'clock position and the secondary groove at the 11 o'clock position, Otherwise the procedure was developed in a mirror fashion. After the majority of tissue had been debulked remnant tissue was ablated with the side fire laser and the curve of the prostate followed up each side wall cl early defining the anterior remnant strip that remained between the 11 and 1 o'clock positions. At completion debris and pieces of prostate were removed from the bladder with irrigation. Both ureteric orifices were reviewed again in shown to be patent in away from any areas of energy damage. The apical area was reviewed and any stray mucosal ooze was controlled. A 22 Samoan 30 cc balloon Molina catheter was placed into the bladder using a flexible stylet. Clear efflux was obtained upon irrigation with a Caesar piston syringe. 30 cc was placed in the balloon and gentle traction was placed. A snap was used to hold tension on the catheter to control bleeding during patient moved and transported. A drainage bag was placed. Once transportation is complete to the PACU the snap will be removed. The patient tolerated the procedure well, he was extubated in the operating and transferred in a stable condition to the recovery area. Total Power 106 kJ Lasing time 15:44 Pathology: Prostate tissue Drains: Molina catheter
[2024-11-02 08:53] VITALS: BP 104/60; PULSE 80; RESP 12; TEMP 36.1; O2SAT 94
[2024-11-02 08:55] VITALS: BP 97/58; PULSE 77; RESP 12; TEMP 36.1; O2SAT 94
[2024-11-02 09:00] VITALS: BP 103/58; PULSE 75; RESP 12; TEMP 36.1; O2SAT 94
[2024-11-02 09:05] VITALS: BP 99/65; PULSE 72; RESP 12; O2SAT 94
[2024-11-02 09:20] VITALS: BP 111/69; PULSE 77; RESP 16; TEMP 36.1; O2SAT 98
== END 2024-11-02 09:20 | disposition home or self-care (01) ==
PROVIDERS: PCP Physician Assistant Medical; Visit Provider Urology
PROC: (CPT 52648; principal; 2024-11-02 08:10)
DX: N40.1 Benign prostatic hyperplasia with lower urinary tract symptoms (principal); Z80.42 Family history of malignant neoplasm of prostate; N32.0 Bladder-neck obstruction; R33.8 Other retention of urine; R35.1 Nocturia; R39.12 Poor urinary stream; N32.89 Other specified disorders of bladder; I10 Essential (primary) hypertension; E78.5 Hyperlipidemia, unspecified; J45.909 Unspecified asthma, uncomplicated; G47.33 Obstructive sleep apnea (adult) (pediatric); E11.9 Type 2 diabetes mellitus without complications; Z79.84 Long term (current) use of oral hypoglycemic drugs; Z79.1 Long term (current) use of non-steroidal anti-inflammatories (NSAID); Z79.51 Long term (current) use of inhaled steroids; Z79.899 Other long term (current) drug therapy; Z99.89 Dependence on other enabling machines and devices; Z88.8 Allergy status to other drugs, medicaments and biological substances; Z87.891 Personal history of nicotine dependence
CPT/HCPCS: 52649; 88305; J0131; J1100; J1956; J2003; J2250; J2405; J2704; J3010

== ENCOUNTER → 2024-11-02 06:45 | Outpatient (BNV) | payer OTHER, SELFPAY | PROVIDERS: PCP Physician Assistant Medical; Visit Provider Urology | DX: N32.0 Bladder-neck obstruction (principal) | CPT/HCPCS: 52649 ==

== ENCOUNTER → 2024-11-04 09:14 | Outpatient (BNVA) | payer OTHER, SELFPAY | PROVIDERS: PCP Physician Assistant Medical; Visit Provider Urology | DX: N32.0 Bladder-neck obstruction (principal) | CPT/HCPCS: 51700; 51798 ==

== ENCOUNTER 2024-12-16 10:06 | Outpatient (AMB) | payer OTHER, SELFPAY ==
--- NOTE | 2024-12-16 10:29 | MHC.OFFVIS ---
Intake Visit Reasons: Greenlight follow up Intake Note: Pt presents to the office today for a green light procedure. follow up Urology meds: finasteride,Tamsulosin Blood thinners: none PVR: 42 mls Hardware Design Engineer Required: No Accompanied by: Self / Same As Patient Allergies lisinopril Allergy (Unknown, Verified 12/16/24 10:33) Unknown HPI Comments Details: Nathaniel is a pleasant male. He is a patient of Dr Waggoner. He seen for the following urologic conditions - family history prostate cancer - lower urinary tract symptoms Hungarian translation provided in office by qualified medical record librarian Doing well postprocedure Did say waking at 3 times at night She has improved stream during the day Discussed stopping medications including finasteride and tamsulosin Lower urinary tract symptoms Bladder ultrasound Large prostate 100 cc Mild diffuse irregularity and trabeculation of the bladder wall. Incomplete bladder emptying Agent GreenLight laser prostatectomy November 2024 Family history of prostate cancer Has been followed due to prostate cancer in his brother and father Also with some degree of bladder outlet obstruction in weak stream Background diabetes on single agent therapy PSA 08/23 0.83, 08/24 1.2, 07/25 1.2, 08/26 1.6, 07/27 1.1 Normal prostate PFSH Medical History Sleep apnea Asthma Hyperlipidemia HTN (hypertension) Family hx of prostate cancer Surgical History H/O colonoscopy H/O umbilical hernia repair Family History Father Prostate cancer Mother Breast cancer Social History Are you a primary pediatric acute care unit nurse to a significant other at home: No Do you presently have visiting nurse or other home services: No Patient Tobacco Use Status: Former Tobacco user Tobacco use type: Cigarette Review of Systems Const Denies chills and Denies fever(s) Card Reports no additional complaints and Denies syncope Resp Denies cough GI Denies abdominal pain and Denies heartburn Reports as per HPI and Denies change in libido Neuro Denies syncope Psych Denies change in libido Endo Denies change in libido Physical Exam Const General: cooperative, healthy appearing, comfortable and no acute distress Orientation/consciousness: patient oriented x3 HEENT Face and sinus: Yes normal facial exam Mouth: moist mucous membranes Neck Neck: Yes normal visual inspection, Yes full ROM and Yes trachea midline Chest Chest palpation & inspection: normal inspection of the chest Resp Effort & Inspection: normal respiratory effort, able to speak in complete sentences and no respiratory distress GI Inspection: Yes normal to inspection Back/Spine/Pelvis Cervical Spine: normal cervical lordosis Thoracic/Lumbar Spine: thoracic and lumbar spine normal to inspection Skin General skin exam: no rashes or lesions noted Neuro General: patient oriented x3, gait normal, tone normal and moves all extremities Extrem General: Yes normal to inspection and Yes capillary refill normal Assessment & Plan Assessment & Plan (1) Bladder outlet obstruction: Code(s): N32.0 - Bladder-neck obstruction Category: Medical Plan Six-month follow-up PSA Orders: Orders Prostate Specific Antigen 6 Months N32.0 - Bladder-neck obstruction Medications: Discontinued tamsulosin Discontinued Reason: Doctor's Order 0.4 mg PO BEDTIME 90 days 90 caps 1RF N32.0 - Bladder-neck obstruction, N40.1 - Benign prostatic hyperplasia with lower urinary tract symptoms, R35.1 - Nocturia finasteride Discontinued Reason: Doctor's Order 5 mg PO DAILY 90 days 90 tabs 1RF N13.8 - Other obstructive and reflux uropathy, N32.0 - Bladder-neck obstruction, N40.1 - Benign prostatic hyperplasia with lower urinary tract symptoms, R33.9 - Retention of urine, unspecified Patient Instructions: This note is constructed using voice recognition software. While every effort has been made to ensure accuracy socket welder helper errors may have been included. Imaging studies, laboratory and physical exam results were discussed and reviewed in detail. No major barriers to patient understanding were identified. An opportunity to ask questions regarding the treatment plan was provided. All questions were answered. The patient expressed understanding and agreement with the above treatment plan. The patient is aware they should contact our office by phone for worsening of their current condition or the appearance of new urologic symptoms. Compliance is encouraged with any medications and followup testing that is ordered. It is a privilege to participate in the urologic care of your patient. If you have any questions or concerns regarding treatment for the above conditions, or other urologic issues, please do not hesitate to contact me. The office telephone contact is [phone]. Sincerely, Dr Danial Wiley MD, [facility] - Urology Compassionate Specialist Care for the Genitourinary System Coding Level of Care Code Est Pt Level 3 (27598) Diagnoses Bladder outlet obstruction N32.0
--- OUTSIDE RECORDS SUMMARY | 2024-12-16 10:45 | XMS_ITS | Encounter Summary ---
Author Organization [facility] Address [address] [place] [address] Care Team Providers Care Assignment Agent Name Role Phone Leonel Waggoner PA-C Primary Care Provider Encounter Details Date Type Department Care Team (Late st Contact Info) Description 05/29/2023 Interim Notes [facility], [facility] [phone] Meagan Woodard [place] [address] [place], [place] [id number] Social History Tobacco Use Types Packs/Day Years [...] Score: 0 05/28/19 24 3:39 PM PST A Depression follow-up plan has been documented for the patient 12/01/2020 11:56 AM PDT documented as of this encounter Care Teams Assignment Agent Relationship Specialty Start Date End Date Leonel Waggoner PA-C [address] [place] [address] PCP - General [facility] 12/07/19 documented as of this encounter
--- OUTSIDE RECORDS SUMMARY | 2024-12-16 10:45 | XMS_ITS | Clinical Summary ---
Author Organization [facility] Address [address] [place] [address] Phone Care Team Providers Care Glass Bulb Machine Adjuster Name Role Phone Physician, No Pcp Primary Care Provider Unavaila ble Allergies No known active allergies Medications No known medications Active Problems No known active problems Encounters Date Type Department Care Team Description 10/19/2024 9:20 AM EDT - 10/19/2024 12:51 PM EDT Emergency [facility] Emergency [address] [place] [address] Romel Arreola, Dehydration (Primary Dx); Lightheadedness Discharge Disposition: Home or Self Care from Last 3 Months Social History Tobacco Use Types Packs/Day Years Used Date Smoking Tobacco: Never Assessed Sex and Gender Information Value Date Recorded Sex Assigned at Not on file Legal Sex Male 4:46 PM EST Gender Identity Not on file Sexual Orientation Not on file Obstetrics History Last Filed Vital Signs Vital Sign Reading Time Taken Comments Blood Pressure 127/74 10/19/2024 11:24 AM EDT Pulse 69 10/19/2024 11:24 AM EDT Temperature 36.7 C (98.1 F) 10/19/2024 11:24 AM EDT Respiratory Rate 18 10/19/2024 11:24 AM EDT Oxygen Saturation 99% 10/19/2024 11:24 AM EDT Inhaled Oxygen Concentration - - Weight 99.3 kg (219 lb) 10/19/2024 9:17 AM EDT Height 188 cm (6' 2 ) 10/19/2024 9:17 AM EDT Body Mass Index 28.12 10/19/2024 9:17 AM EDT Plan of Treatment Health Maintenance Due Date Last Done Comments RSV Immunization Adult Patients (1 - Risk 60-74 years 1-dose series) 2016 Colorectal Cancer Screening: Colonoscopy 04/04/2022 Falls Risk Assessment 04/04/2022 Hepatitis C Screening 04/04/2022 Lung Cancer Screening (Low Dose CT) 04/04/2022 Medicare Annual Wellness Visit 04/04/2022 Social Influencers of Health Screening 04/04/2022 COVID-19 Vaccine ( season) 2024 01/30/2022, 03/20/2021, 07/30/2020, Additional history exists Depression Screening 05/06/2024 Influenza Vaccine (#1) 2025 , 01/28/2023, 01/30/2022, Additional history exists Hypertension/CHF/CAD Annual BMP Blood Test 10/19/2025 10/19/2024, 07/23/2024, 02/12/2024 DTaP,Tdap,and Td Vaccines (3 - Td or Tdap) 06/22/2027 06/22/2017, 11/15/2016 Cholesterol Screening (Lipid Panel) 07/23/2029 07/23/2024, 07/23/2024, 02/12/2024, Additional history exists Zoster Vaccines Completed 11/28/2019, 06/02/2019 Pneumococcal Vaccine: 50+ Years Completed 09/27/2022, 10/26/2021, 05/05/2015 Abdominal Aortic Aneurysm (AAA) Screen Completed 04/11/2023, 04/08/2023 HIB Vaccines Aged Out No longer eligi [...] to complete this topic RSV Immunization Patients Under 20 months Aged Out No longer eligible based on patient's age to complete this topic Varicella Vaccines Aged Out No longer eligible based on patient's age to complete this topic Procedures Procedure Name Priority Date/Time Associated Diagnosis Comments ECG ANNOTATED 10/20/2024 SMITH URINE CULTURE TUBE STAT 10/19/2024 11:27 AM EDT URINALYSIS WITH REFLEX MICROSCOPIC AND CULTURE STAT 10/19/2024 11:27 AM EDT URINALYSIS WITH REFLEX MICROSCOPIC AND CULTURE STAT 10/19/2024 11:27 AM EDT ECG 12-LEAD STAT 10/19/2024 9:39 AM EDT MANUAL DIFFERENTIAL - SYSMEX WAM STAT 10/19/2024 9:22 AM EDT PATHOLOGIST REVIEW BLOOD SMEAR STAT 10/19/2024 9:22 AM EDT HEPATIC FUNCTION PANEL STAT Add-on 10/19/2024 9:22 AM EDT CBC WITH AUTO DIFFERENTIAL STAT 10/19/2024 9:22 AM EDT MAGNESIUM STAT 10/19/2024 9:22 AM EDT BASIC METABOLIC PANEL STAT 10/19/2024 9:22 AM EDT CBC AND DIFFERENTIAL STAT 10/19/2024 9:22 AM EDT US ABDOMEN AORTA SCR STUDY AAA Routine 04/11/2023 4:33 PM EST Encounter for screening for cardiovascular disorders from Last 3 Months or Most Recently Relevant to Health Maintenance Results * ECG-Annotated (10/20/2024) us Provider Onbase MD ECG ORDERABLES Final Result * (ABNORMAL) Urinalysis with reflex microscopic and culture (10/19/2024 11:27 AM EDT) Specific Baggs Urine 1.014 1.003 - 1.030 LAB URINALYSIS - AUTOMATED METHOD 10/19/2024 11:47 AM [facility] pH, Urine 7.0 5.0 - 8.0 pH LAB URINALYSIS - AUTOMATED METHOD 10/19/2024 11:47 AM [facility] Leukocytes, Urine Negative Negative LAB URINALYSIS - AUTOMATED METHOD 10/19/2024 11:47 AM [facility] Nitrite, Urine Negative Negative LAB URINALYSIS - AUTOMATED METHOD 10/19/2024 11:47 AM [facility] Protein, Urine Trace <=Trace mg/dL LAB URINALYSIS - AUTOMATED METHOD 10/19/2024 11:47 AM [facility] Glucose, Urine Negative Negative mg/dL LAB URINALYSIS - AUTOMATED METHOD 10/19/2024 11:47 AM [facility] Ketones, Urine 15(A) Negative mg/dL LAB URINALYSIS - AUTOMATED METHOD 10/19/2024 11:47 AM [facility] Urobilinogen, Urine 1.0 0.2 - 1.0 mg/dL LAB URINALYSIS - AUTOMATED METHOD 10/19/2024 11:47 AM [facility] Bilirubin, Urine Negative Negative LAB URINALYSIS - AUTOMATED METHOD 10/19/2024 11:47 AM [facility] Blood, Urine Negative Negative LAB URINALYSIS - AUTOMATED METHOD 10/19/2024 11:47 AM [facility] Urine Urine specimen obtained by clean catch procedure / Unknown Non-blood Collection / Unknown 10/19/2024 11:27 AM EDT 10/19/2024 11:37 AM EDT us Romel Arreola DO LAB URINE ORDERABLES Final Result [facility] [address] [place] [address], * Smith urine culture tube (10/19/2024 11:27 AM EDT) Pathologist [facility] Extra Tube Hold for add-ons. 10/19/2024 1:[address] [facility] Comment:Auto resulted. Urine Urine specimen obtained by clean catch procedure / Unknown Non-blood Collection / Unknown 10/19/2024 11:27 AM EDT 10/19/2024 11:37 AM EDT Romel Arreola DO LAB URINE ORDERABLES Final Result Performing Organization Address City/[facility]/ZIP Co de Phone Number [facility] [address] [place] [address], [place] [phone] * ECG 12 lead (10/19/2024 9:39 AM EDT) Pathologist [facility] Ventricular Rate ECG 63 BPM GEMUSE Atrial Rate 63 BPM GEMUSE P-R Interval 188 ms GEMUSE QRS Duration 96 ms GEMUSE Q-T Interval 426 ms GEMUSE QTc 435 ms GEMUSE P Wave [place] 54 degrees GEMUSE R [place] 79 degrees GEMUSE T [place] 70 degrees GEMUSE ECG Interpretation Normal sinus rhythm Normal ECG When compared with ECG of 22-MAY-2019 07:50, Vent. rate has decreased BY 38 BPM Confirmed by Lisa GASCA YUFENG ([id number]) on 10/19/2024 1:19:16 PM GEMUSE 10/19/2024 9:39 AM EDT 10/19/2024 1:19 PM EDT us Romel Arreola DO ECG ORDERABLES Final Resul t Performing Organization Address City/[facility]/ZIP Co de Phone Number GEMUSE * (ABNORMAL) Manual differential (10/19/2024 9:22 AM EDT) Neutrophils % 24.0 % LAB HEMETOLOGY METHOD 10/19/2024 12:[address] [facility] Bands % 1.0 % LAB HEMETOLOGY METHOD 10/19/2024 12:[address] [facility] Lymphocytes % 54.0 % LAB HEMETOLOGY METHOD 10/19/2024 12:48 PM [facility] Monocytes % 19.0 % LAB HEMETOLOGY METHOD 10/19/2024 12:48 PM [facility] Eosinophils % 2.0 % LAB HEMETOLOGY METHOD 10/19/2024 12:48 PM [facility] Basophils % 0.0 % LAB HEMETOLOGY METHOD 10/19/2024 12:[address] [facility] Neutrophils Absolute Manual 1.22(L) 1.50 - 7.00 K/mcL LAB HEMETOLOGY METHOD 10/19/2024 12:48 PM [facility] Bands Absolute Manual 0.05(H) 0.00 - 0.00 K/mcL LAB HEMETOLOGY METHOD 10/19/2024 12:48 PM [facility] Lymphocytes Absolute 2.75 1.00 - 5.00 K/mcL LAB HEMETOLOGY METHOD 10/19/2024 12:48 PM [facility] Monocytes Absolute Manual 0.97 0.20 - 1.00 K/mcL LAB HEMETOLOGY METHOD 10/19/2024 12:48 PM [facility] Eosinophils Absolute Manual 0.10 0.00 - 0.50 K/mcL LAB HEMETOLOGY METHOD 10/19/2024 12:48 PM [facility] Basophils Absolute Manual 0.00 0.00 - 0.20 K/mcL LAB HEMETOLOGY METHOD 10/19/2024 12:48 PM [facility] Blood Venous blood specimen / Unknown Venipuncture / Unknown 10/19/2024 9:22 AM EDT 10/19/2024 11:05 AM EDT Romel Arreola DO LAB BLOOD ORDERABLES Final Result [facility] [address] [place] [address], [place] [phone] * Pathology review, blood smear (10/19/2024 9:22 AM EDT) Pathologist Review Blood Smear Scattered reactive-appearin g lymphocytes, including plasmacytoid forms: consider infection or other reactive process. Neutropenia with rare metamyelocytes noted; smear not diagnostic of etiology. Platelets appear adequate in number with rare giant platelets. No significant platelet clumps identified. Note: Clinical correlation and follow-up is recommended, including a possible follow-up CBC to assess for persistence of neutropenia as clinically indicated. 10/19/2024 1:[address] [facility] Blood Venous blood specimen / Unknown Venipuncture / Unknown 10/19/2024 9:22 AM EDT 10/19/2024 11:05 AM EDT Romel Arreola DO LAB BLOOD ORDERABLES Final Result Performing Organization Address [facility]/ZIP Co de Phone Number [facility] [address] [place] [address], [place] [phone] * (ABNORMAL) CBC auto differential (10/19/2024 9:22 AM EDT) WBC 5.1 4.8 - 10.8 K/mcL LAB HEMETOLOGY METHOD 10/19/2024 12:[address] [facility] RBC 4.70 4.50 - 5.50 M/mcL LAB HEMETOLOGY METHOD 10/19/2024 12:[address] [facility] Hemoglobin 14.2 13.5 - 17.5 g/dL LAB HEMETOLOGY METHOD 10/19/2024 12:[address] [facility] Hematocrit 43.1 42.0 - 54.0 % LAB HEMETOLOGY METHOD 10/19/2024 12:[address] [facility] MCV 91.1 79.0 - 98.0 FL LAB HEMETOLOGY METHOD 10/19/2024 12:[address] [facility] MCH 30.0 27.0 - 32.0 pcg LAB HEMETOLOGY METHOD 10/19/2024 12:[address] [facility] MCHC 32.9 32.0 - 37.0 g/dL LAB HEMETOLOGY METHOD 10/19/2024 12:[address] [facility] RDW 14.7 11.0 - 15.0 % LAB HEMETOLOGY METHOD 10/19/2024 12:[address] [facility] Platelets 154 130 - 400 K/mcL LAB HEMETOLOGY METHOD 10/19/2024 12:[address] [facility] MPV 11.7(H) 7.0 - 11.0 FL LAB HEMETOLOGY METHOD 10/19/2024 12:[address] [facility] NRBC 0.0 <1.0 % LAB HEMETOLOGY METHOD 10/19/2024 12:[address] [facility] NRBC Absolute 0.00 <0.10 K/mcL LAB HEMETOLOGY METHOD 10/19/2024 12:[address] [facility] Blood Venous blood specimen / Unknown Venipuncture / Unknown 10/19/2024 9:22 AM EDT 10/19/2024 11:05 AM EDT us Romel Arreola DO LAB BLOOD ORDERABLES Final Result [facility] [address] [place] [address], * Magnesium (10/19/2024 9:22 AM EDT) Magnesium 2.4 1.9 - 2.6 mg/dL LAB CHEMISTRY METHOD 10/19/2024 12:09 PM [facility] Blood Venous blood specimen / Unknown Venipuncture / Unknown 10/19/2024 9:22 AM EDT 10/19/2024 11:05 AM EDT us Romel Arreola DO LAB BLOOD ORDERABLES Final Result [facility] [address] [place] [address], [place] [phone] * (ABNORMAL) Hepatic function panel (10/19/2024 9:22 AM EDT) Total Protein 7.4 6.0 - 8.0 g/dL LAB CHEMISTRY METHOD 10/19/2024 12:09 PM [facility] Albumin 3.7 3.2 - 5.0 g/dL LAB CHEMISTRY METHOD 10/19/2024 12:09 PM [facility] Total Bilirubin 1.0 0.0 - 1.4 mg/dL LAB CHEMISTRY METHOD 10/19/2024 12:09 PM [facility] Bilirubin, Direct 0.3 0.0 - 0.3 mg/dL LAB CHEMISTRY METHOD 10/19/2024 12:09 PM [facility] Bilirubin, Indirect 0.7 0.0 - 1.1 mg/dL LAB CHEMISTRY METHOD 10/19/2024 12:09 PM [facility] ALT (SGPT) 82(H) 10 - 60 unit/L LAB CHEMISTRY METHOD 10/19/2024 12:09 PM [facility] AST (SGOT) 108(H) 10 - 42 unit/L LAB CHEMISTRY METHOD 10/19/2024 12:09 PM [facility] Alkaline Phosphatase 86 42 - 121 unit/L LAB CHEMISTRY METHOD 10/19/2024 12:09 PM [facility] Blood Venous blood specimen / Unknown Venipuncture / Unknown 10/19/2024 9:22 AM EDT 10/19/2024 11:05 AM EDT Romel Grace Arreola DO LAB BLOOD ORDERABLES Final Result [facility] [address] [place] [address], * Basic metabolic panel (10/19/2024 9:22 AM EDT) Sodium 139 133 - 145 mmol/L LAB CHEMISTRY METHOD 10/19/2024 12:09 PM [facility] Potassium 4.3 3.5 - 5.5 mmol/L LAB CHEMISTRY METHOD 10/19/2024 12:09 PM [facility] Chloride 106 96 - 110 mmol/L LAB CHEMISTRY METHOD 10/19/2024 12:09 PM [facility] CO2 28 21 - 32 mmol/L LAB CHEMISTRY METHOD 10/19/2024 12:09 PM [facility] Anion Gap 5 3 - 11 LAB CHEMISTRY METHOD 10/19/2024 12:09 PM [facility] Glucose 95 70 - 100 mg/dL LAB CHEMISTRY METHOD 10/19/2024 12:09 PM [facility] BUN 14 5 - 25 mg/dL LAB CHEMISTRY METHOD 10/19/2024 12:09 PM [facility] Creatinine 0.91 0.70 - 1.30 mg/dL LAB CHEMISTRY METHOD 10/19/2024 12:09 PM [facility] eGFR 92 >=60 mL/min/1. 73m2 LAB CHEMISTRY METHOD 10/19/2024 12:09 PM [facility] Comment:Calculation based on the Chronic Kidney Disease Epidemiology Collaboration (CKD-EPI) equation refit without adjustment for race. BUN/Creatinine Ratio 15.4 LAB CHEMISTRY METHOD 10/19/2024 12:[address] [facility] Calcium 8.6 8.5 - 10.5 mg/dL LAB CHEMISTRY METHOD 10/19/2024 12:[address] [facility] Blood Venous blood specimen / Unknown Venipuncture / Unknown 10/19/2024 9:22 AM EDT 10/19/2024 11:05 AM EDT us Romel Arreola DO LAB BLOOD ORDERABLES Final Result [facility] [address] [place] [address], [place] [phone] * US ABDOMEN AORTA SCR STUDY AAA (04/11/2023 4:33 PM EST) Anatomical Region Laterality Modality Ultrasound 04/08/2023 8:50 AM EST Narrative 04/11/2023 4:33 PM EST [facility] Diagnostic Imaging Department [address] [place] [address] Patient: NATHANIEL DEE./Age/Sex: 1955 - 67 - M Unit#: [id number] Location/Status: SPDIUS/REG CLI Mnemonic/Ordering Site: [facility]/SPUS Ordering Physician: YOLANDA BOUCHER MD US Abdomen [...] Date/Time: 04/11/23 1625 Sign date/Time: 04/11/23 1633 Procedure Note Frandy Carroll MD - 06/11/2023 [facility] Diagnostic Imaging Department [address] [place] [address] Patient: NATHANIEL DEE /Age/Sex: 1955 - 67 - M Unit#: [id number] Location/Status: [facility] Mnemonic/Ordering Site: [facility] Ordering Physician: YOLANDA BOUCHER MD US Abdomen [...] date/Time: 04/11/23 1633 us Yolanda Boucher MD IMG US PROCEDURES Final Result from Last 3 Months or Most Recently Relevant to Health Maintenance Insurance Member Subscriber Plan / Payer (Ef fective 2017-Present) Name:Nathaniel Dee Relation to Subscriber:Self Name:Nathaniel Dee Payer ID:[id number] Group ID:Not on file Type:Not on file Address: [facility] [address] [address] Care Teams Glass Bulb Machine Adjuster Relationship Specialty Start Date End Date Physician, No Pcp PCP - General 10/19/24
--- OUTSIDE RECORDS SUMMARY | 2024-12-16 10:45 | XMS_ITS | Clinical Summary ---
Author Organization [facility] Address [address] [place] [address] Care Team Providers Care Public Policy Manager Name Role Phone Ana Kennedy Primary Care Provider [phone] Allergies Active Allergy Reactions Criticality Noted Date [...] Screening (Colonoscopy) 11/14/2022 11/14/2012 Influenza Vaccine (#1) 2025 12/19/2016 DTap / Tdap / Td (2 [...] age to complete this topic Care Teams Public Policy Manager Relationship Specialty Start Date End Date Ana Kennedy [address] [place] [id number] PCP - General Family Medicine 07/15/17
== END 2024-12-16 11:01 | disposition home or self-care (01) ==
LOC: HO.HUSH 10:06
PROVIDERS: PCP Physician Assistant Medical; Visit Provider Urology
DX: N32.0 Bladder-neck obstruction (principal)
CPT/HCPCS: 99024

== ENCOUNTER → 2024-12-16 10:06 | Outpatient (BNVA) | payer OTHER, SELFPAY | PROVIDERS: PCP Physician Assistant Medical; Visit Provider Urology | DX: N32.0 Bladder-neck obstruction (principal); N40.1 Benign prostatic hyperplasia with lower urinary tract symptoms; R35.1 Nocturia; R33.9 Retention of urine, unspecified | CPT/HCPCS: 99212 ==